=== PATIENT | female | born 1945 | race Caucasian/White ===

== ENCOUNTER 2016-11-28 05:17 | Inpatient (IN) | payer OTHER ==
[2016-11-08 09:52] VITALS: BMI 29.0
--- NOTE | 2016-11-08 10:38 | PAT Medication Instructions ---
Service Date Nov 08, 2016. Current Home Medication List Atorvastatin (Lipitor), 40 MG PO QPM Cholecalciferol (Vitamin D3), 1 TAB PO QPM Lisinopril (Lisinopril), 1 TAB PO QPM Losartan Potassium (Cozaar), 50 MG PO QPM Nortriptyline (Pamelor), 50 MG PO HS Tramadol (Ultram), 50 MG PO Q6 PRN for Pain Medication Instructions For Your Scheduled Surgery - Hold the following medications evening prior to surgery: Losartan Potassium (Cozaar), 50 MG PO QPM Lisinopril (Lisinopril), 1 TAB PO QPM - Take the following medications the morning of surgery with a sip of water: Tramadol (Ultram), 50 MG PO Q6 PRN for Pain (can take up to four hours prior to surgery if needed) - Take the following medications as scheduled the night before surgery: Tramadol (Ultram), 50 MG PO Q6 PRN for Pain Nortriptyline (Pamelor), 50 MG PO HS Cholecalciferol (Vitamin D3), 1 TAB PO QPM Atorvastatin (Lipitor), 40 MG PO QPM If you have any questions please call us at [phone] or [phone] ( Alyssa) or [phone]
[2016-11-08 11:11] LABS: PROTHROMBIN TIME (PATIENT) 10.3 SECONDS (9.0-12.0)
[2016-11-08 12:11] LABS: ESTIMATED AVERAGE GLUCOSE 137 mg/dl; HA1C FLAG Normal (Normal)
--- NOTE | 2016-11-27 08:51 | HISTORY & PHYSICAL EXAMINATION ---
DATE OF ADMISSION: 11/28/2016 CHIEF COMPLAINT: Right hip pain. HISTORY OF PRESENT ILLNESS: The patient is a 71-year-old female with known osteoarthritis about her bilateral hips. She takes tramadol intermittently daily for pain. She has pain and disability with activities of daily living. She has pain with prolonged weightbearing and standing activities. She has difficulty with kneeling, bending or squatting activities. She now desires to proceed with right total hip arthroplasty. PAST MEDICAL HISTORY: Coronary artery disease, hypertension, type 2 diabetes, although she states she does not medicate regularly. PAST SURGICAL HISTORY: None. MEDICATIONS: Atorvastatin calcium 40 mg daily, losartan potassium 50 mg daily, natural vitamin D 5000 units daily, nortriptyline hydrochloride 50 mg at bedtime, ranitidine hydrochloride 150 mg daily, tramadol hydrochloride 50 mg daily p.r.n. ALLERGIES: No known drug allergies. SOCIAL HISTORY AND REVIEW OF SYSTEMS: Noncontributory. PHYSICAL EXAMINATION: GENERAL: Well-nourished, well-developed elderly female who appears her stated age. HEENT: Normocephalic, atraumatic, extraocular movements intact, oropharynx pink and moist. NECK: Supple without adenopathy. LUNGS: Clear to auscultation bilaterally. HEART: Regular rate and rhythm. ABDOMEN: Soft, nontender, nondistended. EXTREMITIES: Upper extremities are within normal limits. The right hip demonstrates decreased range of motion. There is limitation of active and passive internal/external rotation with pain at end pressure. X-RAYS: X-rays were reviewed. She has moderate to severe osteoarthritis about the right hip with loss of the joint space, particularly on the inferior joint. She has osteophytes about the femoral head and acetabulum. ASSESSMENT: Right hip degenerative joint disease. PLAN: Risks versus benefits were discussed, consent was obtained. The patient's primary care physician is Dr. Munroe. We will proceed with right total hip arthroplasty upon preoperative workup and medical clearance. VIPUL
[2016-11-28] VITALS (11 sets, daily range): BP systolic 138–182; BP diastolic 58–88; PULSE 62–85; TEMP 36.3–36.8; O2SAT 94–98; Ht 162.6 cm; Wt 77.1 kg
[~2016-11-28] VITALS: Ht 162.6 cm; Wt 77.1 kg
[~2016-11-28 05:17] MED LIST: ATOR-24 PO; LOSA50TA54 PO; LSN5 PO; NORT50CA PO; TRAM-10 PO; VTMD1000 PO
[2016-11-28] MEDS ORDERED: METOCLOPRAMIDE HCL 10 MG TAB PO SCH (06:00)
[2016-11-28] MEDS ORDERED: FAMOTIDINE 20 MG TAB PO SCH (06:00)
[2016-11-28] MEDS ORDERED: GABAPENTIN 300 MG CAP PO SCH (06:00)
[2016-11-28] MEDS ORDERED: ACETAMINOPHEN 500 MG TAB PO SCH (06:00)
[2016-11-28] MEDS ORDERED: DEXAMETHASONE 4 MG TAB PO SCH (06:00)
[2016-11-28] MEDS ORDERED: LACTATED RINGER'S 500 ML IV SCH (06:00)
[2016-11-28] MEDS ORDERED: CeleBREX 200 MG CAP PO SCH (06:00)
[2016-11-28] MEDS ORDERED: CEFAZOLIN 1000MG/55 ML D5W 55 ML IV SCH (06:00)
[2016-11-28] MEDS ORDERED: LACTATED RINGER'S 1000ML IV SCH (06:00)
[2016-11-28] MEDS ORDERED: ROPIVACAINE 5MG/ML 30 ML 150 MG, BUPIVACAINE/EPINEPHR 0.5% MPF 30 ML, KETOROLAC TROMETH... INFIL SCH ×7 (06:00)
[2016-11-28] MEDS: TRANEXAMIC ACID INJ 1,000 MG in SODIUM CHLORIDE 0.9% 100ML 100 ML IV SCH ×2 (06:17→10:26)
[2016-11-28] MEDS ORDERED: BUPIVACAINE 0.5 % 5 MG/1 ML PF 10ML VIAL ONE (06:20)
--- NOTE | 2016-11-28 06:36 | History & Physical Bridge Note ---
H&P Re-Evaluation Bridge Note: I have examined the patient, reviewed the History & Physical and in the interval since the performance of the History & Physical I have noted the following changes of clinical significance: No changes noted
[2016-11-28] MEDS ORDERED: MIDAZOLAM HCL 1 MG/ML 2ML VIAL ONE (06:39)
[2016-11-28] MEDS ORDERED: FENTANYL CITRATE INJ 50 MCG/1 ML 2 ML VIAL ONE (06:39)
[2016-11-28] MEDS ORDERED: LACTATED RINGER'S 1000ML 1,000 ML IV PRN (06:44)
[2016-11-28] MEDS ORDERED: ONDANSETRON INJ 2 MG/ML 2 ML VIAL IV PRN ×2 (06:45→08:30)
[2016-11-28] MEDS ORDERED: FENTANYL CITRATE INJ 50 MCG/1 ML 2 ML VIAL IV PRN (06:45)
[2016-11-28] MEDS ORDERED: CEFAZOLIN SOD 1 GM VIAL ONE (07:01)
[2016-11-28] MEDS ORDERED: ORTHO JOINT ANESTHETIC ONE (07:11)
[2016-11-28] MEDS ORDERED: PHENYLEPHRINE 100MCG/ML 5ML SYR ONE (07:38)
[2016-11-28] MEDS ORDERED: PROPOFOL IV EMULSION 10 MG/ML 20 ML VIAL IV ONE (07:39)
[2016-11-28] MEDS ORDERED: BACITRACIN 50000 UNIT VIAL IR ONE (07:40)
[2016-11-28] MEDS ORDERED: POVIDONE-IODINE OP SOLN 30 ML BTL TOP ONE (07:40)
--- NOTE | 2016-11-28 07:48 | [facility] Post Operative Brief Note ---
Immediate Operative Summary Operative Date Nov 28, 2016. Pre-Operative Diagnosis Right hip degenerative joint disease Post-Operative Diagnosis Right hip degenerative joint disease Procedure(s) Performed Right total hip arthroplasty; uncemented Surgeon Dr. Rodriguez Major Assembly Lineman Surgeon(s) Mil Aquino PA-C Estimated Blood Loss 100 ml Findings severe OA Specimens A. Right femoral head Complication(s) None
--- NOTE | 2016-11-28 08:04 | OPERATIVE REPORT ---
DATE OF OPERATION: 11/28/2016 PREOPERATIVE DIAGNOSIS: Osteoarthritis right hip. POSTOPERATIVE DIAGNOSIS: Osteoarthritis right hip. PROCEDURE: Accolade right total hip arthroplasty. SURGEON: Dr. Rodriguez. GORING CUTTER: Mil Aquino PA-C. ANESTHESIA: Spinal. COMPLICATIONS: None. OPERATION AND FINDINGS: PROCEDURE: Following induction of adequate spinal anesthesia, the patient was placed in left lateral decubitus position and right Pablo-Langenbeck incision was made. Subcutaneous tissue was sharply dissected. Electrocautery used for hemostasis. The fascia was incised throughout the length of the wound and a gibbs scissor placed beneath the short external rotators. The pyriformis was tagged with #1 Vicryl. The short external rotators were divided from the posterior aspect of the femur using electrocautery. These were swept posteriorly. A T-capsulotomy incision was made and the hip was dislocated using a combination of flexion, adduction, and internal rotation. Exposure of the femoral neck with old-style Hohmann and a blunt Hohmann was carried out and a femoral rasp was utilized as a guide for making the appropriate level femoral neck cut. This bone fragment was removed and reserved on the back table. Next, attention was turned to the acetabulum where bone hook was used to retract the femur while the offset retractors were placed anterior and posteriorly. A double-angled Hohmann was placed in superior and anterior position exposing the acetabulum nicely. Acetabular labrum as well as posterior capsule elements were removed using a long knife and a long pickup. Fovea centralis was cleared of all soft tissue. Sequential reamings were carried up to a 52 and decision was made to proceed with impaction of a 52 trabecular metal cup. This was impacted and held using a single 35 mm bone screw. The acetabular liner was placed with 15 of elevated posterior wall in the superior and posterior position. Next, attention was turned to the femoral portion of the case where a Bovie and pickup was used to further clear short external rotators from their insertion on the femur. Box osteotome was used to gain access to the femoral canal and the T-handled rasp and a rattail rasp were used to further open and lateral the canal. Sequentially raspings were carried up to a #4 which gave good fit and fill of the proximal femur. A trial reduction was carried out and #4 offset femoral neck component was chosen as the size to be used. A -5 x 36 mm ceramic femoral head was impacted into position, +0 head was utilized. The trial reduction was stable in all degrees of rotation with no [id number] impingement. The hip was dislocated. The trial components were removed and the final femoral stem, neck, and femoral head combination were assembled on the back table and impacted into position. Hip was relocated. Range of motion checked once again successful and the wound was irrigated. The pyriformis repaired to the greater trochanter using #1 Vicryl [id number] suture. A Hemovac drain was placed and the fascia was closed using #1 Vicryl, subcutaneous tissue was closed using 0 Dexon, and skin was closed with scott. Sterile dressing of Adaptic, 4 x 4's, ABDs, and foam tape was applied. The patient tolerated the procedure well. Recovery room stable. Due to the complex nature of the procedure, the entire surgery was performed with the operational assistance of Mil Aquino PA-C. The surgical assistant, under direct supervision, was involved in the actual performance of all aspects of the surgical procedure including hemostasis, tissue retraction and incision, instrument management, patient positioning, and wound closure. I attest to the content of the Intraoperative Record and any orders documented therein. Any exceptio ns are noted below.
[2016-11-28] MEDS ORDERED: MoRPHine SULFATE 2 MG/ML CARP IV PRN ×2 (08:30→10:30)
[2016-11-28] MEDS ORDERED: ZOLPIDEM TARTRATE 5 MG TAB PO PRN (08:30)
[2016-11-28] MEDS ORDERED: ALUMINUM/MAGNESIUM/SIMETH (MAALOX MAX) 30 ML UDC PO PRN (08:30)
[2016-11-28] MEDS ORDERED: DiphenhydrAMINE HCL 50 MG/ML VIAL IV PRN (08:30)
[2016-11-28] MEDS ORDERED: MAGNESIUM HYDROXIDE SUSP 30 ML UDC PO PRN (08:30)
[2016-11-28] MEDS ORDERED: BISACODYL 10 MG SUPP PR PRN (08:30)
--- NOTE | 2016-11-28 09:03 | DIAGNOSTIC IMAGING REPORT ---
RIGHT PELVIS/UNILATERAL HIP 1 VIEW CLINICAL HISTORY: Right hip arthroplasty. COMPARISON: Right hip radiographs January 15, 2016. FINDINGS: Alignment of the total right hip arthroplasty is anatomic. There is no fracture or unexpected radiopaque foreign body. Drains and skin scott are present. IMPRESSION: Expected findings following total right hip arthroplasty. Electronically signed by: Jaylan Layton M.D. 11/28/2016 9:01 AM Dictated Date/Time: 11/28/2016 9:01 AM
--- NOTE | 2016-11-28 09:11 | Anesthesiology Progress Note ---
Anesthesia Post Op Note Date & Time Nov 28, 2016 at 09:11 Vital Signs Pain Intensity: 0 Vital Signs Past 12 Hours Date Time Temp Pulse Resp B/P Pulse Ox O2 Delivery O2 Flow Rate FiO2 11/28/16 09:00 65 17 11/28/16 09:00 66 17 99 11/28/16 08:59 139/70 11/28/16 08:55 66 25 11/28/16 08:55 66 25 99 11/28/16 08:53 141/64 11/28/16 08:50 64 15 11/28/16 08:50 64 15 99 11/28/16 08:49 66 17 11/28/16 08:49 65 17 113/61 100 11/28/16 08:44 68 17 11/28/16 08:44 67 17 140/61 100 11/28/16 08:39 69 16 11/28/16 08:39 69 16 100 11/28/16 08:38 148/66 11/28/16 08:34 71 20 11/28/16 08:34 72 20 142/51 100 11/28/16 08:29 36.7 90 16 141/50 100 Mask 10 11/28/16 08:29 74 19 11/28/16 08:29 74 19 98/72 100 11/28/16 06:03 94 Room Air 11/28/16 05:51 36.8 77 20 182/82 Notes Mental Status: alert / awake / arousable, participated in evaluation Pt Amnestic to Procedure: Yes Nausea / Vomiting: adequately controlled Pain: adequately controlled Airway Patency, RR, SpO2: stable & adequate BP & HR: stable & adequate Hydration State: stable & adequate Neuraxial Anesthesia: was administered, sensory block is resolving Anesthetic Complications: no major complications apparent Pt doing well.
[2016-11-28] MEDS: SODIUM CHLORIDE 0.9% 1000ML 1,000 ML IV SCH ×2 (10:26→20:22)
[2016-11-28] MEDS ORDERED: MoRPHine SULFATE 10 MG/ML CARP/VIAL IV PRN (10:30)
[2016-11-28] MEDS ORDERED: GLUCAGON FOR INJ 1 MG VIAL SQ PRN (10:30)
[2016-11-28] MEDS ORDERED: GLUCOSE 10 TABS/TUBE PO PRN (10:30)
[2016-11-28] MEDS ORDERED: MoRPHine SULFATE 4 MG/ML 1 ML CARP\\VIAL IV PRN (10:30)
[2016-11-28] MEDS ORDERED: GLUCOSE 40% GEL 15 GM TUBE PO PRN (10:30)
[2016-11-28] MEDS ORDERED: DEXTROSE 50% 50 ML SYR IV PRN (10:30)
[2016-11-28] MEDS: PANTOprazole SOD 40 MG TAB PO SCH (11:08)
[2016-11-28] MEDS: MULTIVITAMIN TAB PO SCH (11:08)
[2016-11-28] MEDS: FERROUS GLUCONATE 324 MG TAB PO SCH ×2 (12:14→18:02)
[2016-11-28] MEDS: KETOROLAC TROMETHAMINE 15 MG/ML VIAL IV. SCH ×3 (12:14→23:48)
[2016-11-28] MEDS: INSULIN ASPART 100 UNITS/ML 3 ML PEN SC SCH ×3 (13:11→21:09)
[2016-11-28] MEDS: CEFAZOLIN IV 1,000 MG in DEXTROSE 5% 50ML 50 ML IV SCH ×2 (14:09→22:34)
[2016-11-28] MEDS: ACETAMINOPHEN 500 MG TAB PO SCH ×2 (14:10→22:34)
[2016-11-28] MEDS: OXYCODONE HCL IR 5 MG TAB (IMMEDIATE RELEASE) PO PRN (14:14)
[2016-11-28] MEDS: NORTRIPTYLINE HCL 25 MG CAP PO SCH (21:02)
[2016-11-28] MEDS: SENNA 8.6 MG TAB PO SCH (21:02)
[2016-11-28] MEDS: ASPIRIN 81 MG ECTAB PO SCH (21:03)
[2016-11-28] MEDS: ATORVASTATIN 40 MG TAB PO SCH (21:03)
[2016-11-28] MEDS: LISINOPRIL 5 MG TAB PO SCH (21:03)
[2016-11-28] MEDS: LOSARTAN POTASSIUM 50 MG TAB PO SCH (21:03)
[2016-11-28] MEDS: CHOLECALCIFEROL 1000 INTER.UNIT TAB PO SCH (21:03)
[2016-11-28] MEDS: DOCUSATE SODIUM 100 MG CAP PO SCH (21:03)
[2016-11-29 00:30] VITALS: BP 128/74; PULSE 75; TEMP 36.2; O2SAT 93
[2016-11-29 03:35] VITALS: BP 119/72; PULSE 81; TEMP 36.7; O2SAT 95
[2016-11-29] MEDS: SODIUM CHLORIDE 0.9% 1000ML 1,000 ML IV SCH (05:44)
[2016-11-29] MEDS: ACETAMINOPHEN 500 MG TAB PO SCH ×3 (05:45→21:20)
[2016-11-29] MEDS: KETOROLAC TROMETHAMINE 15 MG/ML VIAL IV. SCH (05:46)
[2016-11-29 06:55] LABS: BASO % 0.1 %; BASO ABS # 0.01 K/uL (0-0.2); COMPLETE YES; HEMATOCRIT 32.2 % (37-47); IG% 0.2 %; LYMPH % 9.9 %; LYMPH ABS # 1.18 K/uL (1.2-3.4); MEAN CELL VOLUME 85.4 fL (80-100); MEAN CORPUSCULAR HEMOGLOBIN 27.9 pg (25-34); MEAN CORPUSCULAR HGB CONC 32.6 g/dl (32-36); MEAN PLATELET VOLUME 9.8 fL (7.4-10.4); MONO % 11.6 %; NEUT % 78.2 %; PLATELET COUNT 250 K/uL (130-400); RED BLOOD COUNT 3.77 M/uL (4.2-5.4); WHITE BLOOD COUNT 11.94 K/uL (4.8-10.8)
[2016-11-29 07:21] LABS: BUN/CREATININE RATIO 21.8 (10-20); CREATININE 0.85 mg/dl (0.60-1.20); POTASSIUM 3.8 mmol/L (3.5-5.1)
[2016-11-29 07:35] VITALS: BP 146/72; PULSE 73; TEMP 36.8; O2SAT 94
--- NOTE | 2016-11-29 07:42 | Orthopedic Progress Note ---
Orthopedic Progress Note Date of Service Nov 29, 2016. Subjective Post OP Day: 1 Reports: feeling well Objective N/V intact, dressing C/D/I (Prevena and hemovac in place), toes mobile Date Time Temp Pulse Resp B/P Pulse Ox O2 Delivery O2 Flow Rate FiO2 11/29/16 07:35 36.8 73 16 146/72 94 Room Air 11/29/16 03:35 36.7 81 18 119/72 95 Room Air 11/29/16 00:30 36.2 75 18 128/74 93 Room Air 11/28/16 23:45 Room Air 11/28/16 19:31 36.7 85 16 150/72 94 Room Air 11/28/16 19:15 Room Air 11/28/16 16:42 155/81 11/28/16 16:00 Room Air 2.0 11/28/16 15:29 162/80 11/28/16 15:27 36.3 78 16 178/75 94 Room Air 11/28/16 12:35 74 16 144/75 98 Nasal Cannula 2.0 11/28/16 11:32 81 16 138/76 97 Nasal Cannula 2.0 11/28/16 10:29 36.8 75 18 166/88 95 Room Air 11/28/16 10:05 62 16 179/84 96 Nasal Cannula 2.0 11/28/16 10:04 Nasal Cannula 2.0 11/28/16 10:00 94 Nasal Cannula 2.0 11/28/16 09:35 36.5 65 20 157/58 94 Nasal Cannula 2.0 11/28/16 09:24 157/73 11/28/16 09:21 58 17 100 11/28/16 09:21 58 17 11/28/16 09:19 157/64 11/28/16 09:16 65 15 99 11/28/16 09:16 64 15 11/28/16 09:14 150/60 11/28/16 09:12 37.1 65 16 150/60 97 Nasal Cannula 2 11/28/16 09:11 60 21 100 11/28/16 09:11 60 21 11/28/16 09:09 146/87 11/28/16 09:06 60 16 11/28/16 09:06 60 16 99 11/28/16 09:04 130/74 11/28/16 09:01 64 21 11/28/16 09:01 65 21 100 11/28/16 09:00 65 17 11/28/16 09:00 66 17 99 11/28/16 08:59 139/70 11/28/16 08:55 66 25 11/28/16 08:55 66 25 99 11/28/16 08:53 141/64 11/28/16 08:50 64 15 11/28/16 08:50 64 15 99 11/28/16 08:49 66 17 11/28/16 08:49 65 17 113/61 100 11/28/16 08:44 68 17 11/28/16 08:44 67 17 140/61 100 11/28/16 08:39 69 16 11/28/16 08:39 69 16 100 11/28/16 08:38 148/66 11/28/16 08:34 71 20 11/28/16 08:34 72 20 142/51 100 11/28/16 08:29 36.7 90 16 141/50 100 Mask 10 11/28/16 08:29 74 19 11/28/16 08:29 74 19 98/72 100 Laboratory Results 24 Hours: Test 11/29/16 06:40 White Blood Count 11.94 K/uL Red Blood Count 3.77 M/uL Hemoglobin 10.5 g/dL Hematocrit 32.2 % Mean Corpuscular Volume 85.4 fL Mean Corpuscular Hemoglobin 27.9 pg Mean Corpuscular Hemoglobin Concent 32.6 g/dl Platelet Count 250 K/uL Mean Platelet Volume 9.8 fL Neutrophils (%) (Auto) 78.2 % Lymphocytes (%) (Auto) 9.9 % Monocytes (%) (Auto) 11.6 % Eosinophils (%) (Auto) 0.0 % Basophils (%) (Auto) 0.1 % Neutrophils # (Auto) 9.35 K/uL Lymphocytes # (Auto) 1.18 K/uL Monocytes # (Auto) 1.38 K/uL Eosinophils # (Auto) 0.00 K/uL Basophils # (Auto) 0.01 K/uL Assessment & Plan Assessment: 71 yo female stable POD #1 s/p right OCHOA Plan: 1. Med management 2. DVT prophylaxis- ASA, TEDs, SCDs 3. PT/OT 4. D/C planning- home w/ HH
--- NOTE | 2016-11-29 07:45 | Discharge Instructions ---
Discharge Instructions Admission Reason for Admission: Right Hip Osteoarthritis Discharge Discharge Diagnosis / Problem: Right hip arthritis Discharge Goals Goal(s): Decrease discomfort, Improve function Activity Recommendations Activity Limitations: as noted below . Instructions / Follow-Up Instructions / Follow-Up ACTIVITY RECOMMENDATIONS: SELF CARE INSTRUCTIONS AFTER TOTAL HIP REPLACEMENT Until the incision and soft tissues around your hip have healed, there is a possibility that the hip prosthesis could dislocate. A. Observe the following precautions to prevent dislocation: 1. Don't bend your hip greater than 90 degrees. 2. Avoid crossing your legs or ankles while standing or lying. 3. Sit with your feet placed 6 inches apart. 4. When sitting, keep your knees below your hips. Sit on a firm surface, avoid deep, soft chairs and couches. Use an elevated toilet seat in the bathroom. 5. Don't bend over at the waist. Use a long handled shoehorn and a sock aid to help you put on your shoes and socks. A optical manufacturing technician can help you pick up attendant objects that are too high or too low to reach. 6. Keep car riding to a minimum for at least one month after surgery. B. Your balance may be shaky for a while. Use crutches or a walker until directed by your doctor. C. Use hand rails when walking on stairs. D. Wear low heeled shoes with non-slip soles. E. Be sure that your floors are free of things that could trip you - throw rugs , electrical cords, small objects. Avoid wet and waxed floors, especially with crutches and canes. F. Try to walk several times a day with rest periods between. G. Continue with all the exercises taught to you in the hospital. Again, make walking a part of your daily routine. SPECIAL CARE INSTRUCTIONS: VERY IMPORTANT TO READ AND REVIEW A. You may still be at risk for phlebitis and blood clots. 1. Wear surgical stockings (NILSA hose) for 2 weeks after surgery to improve circulation and reduce swelling. 2. Take Aspirin 81mg twice daily for 4 weeks or as directed by your doctor. This is your blood thinner. 3. High risk patients may be prescribed a stronger blood thinner if necessary. 4. If you are on Coumadin normally, your family doctor/visual c developer should monitor your blood work. Expect a phone call the day of or the day after bloodwork is drawn to adjust your dosage. B. You must take antibiotics before having dental work, bladder, bowel and other surgery. Your doctor will provide you with a permanent card to carry describing precautions. C. Call [facility] if you have a fever, redness or swelling around the incision, cloudy drainage from incision, or sudden increase in pain in your hip, not relieved by your regular pain medication. D. Please call the office at if you have any concerns or questions about your operation or recovery. * YOU MAY SHOWER, NO TUB BATHS UNTIL CLEARED BY YOUR DOCTOR. * WEAR NILSA HOSE 20 HOURS PER DAY FOR 2 WEEKS. * YOU SHOULD USE A WALKER OR CRUTCHES FOR 2-4 WEEKS. THIS WILL HELP PREVENT STRAIN ON YOUR HIP MUSCLE AND ALLOW IT TO HEAL PROPERLY. YOU MAY WEAN TO A CANE TOLERATED. * MOST PATIENTS WILL HAVE HOME NURSING FOR THERAPY. IF YOU DECIDE TO DO OUTPATIENT PHYSICAL THERAPY, PLEASE SCHEDULE THIS 3 TIMES PER WEEK. Prevena- This is a large suction dressing covering your incision. This will help pull any excess drainage from the wound and allow your incision to heal properly. You may shower with this if you can keep the unit outside of the shower. If any bleeding or leakage is noted please call your doctor's office. This will remain on your incision for 7 days and then should be removed. This can be done yourself or by the home nursing staff if applicable. The entire unit is disposable once removed. Once removed, keep incision clean and dry. If redness or drainage is noted, please call your surgeon. FOLLOW UP VISIT: If appointment is not already scheduled: Please call [facility] to make a follow-up appointment for 2 weeks after your surgery at . Current Hospital Diet Patient's current hospital diet: Diabetes Type 2 Diet Discharge Diet Recommended Diet: Diabetes Type 2 Diet Procedures Procedures Performed: Right total hip arthroplasty; uncemented Pending Studies Studies pending at discharge: no Laboratory Results Hemoglobin A1c Test 11/08/16 10:41 Range/Units Estimated Average Glucose 137 mg/dl Hemoglobin A1c 6.4 H 4.5-5.6 % Lipid Panel Test 09/17/16 11:10 Range/Units Triglycerides Level 130 0-150 mg/dl Cholesterol Level 124 0-200 mg/dl HDL Cholesterol 47 mg/dl Cholesterol/HDL Ratio 2.6 LDL Cholesterol, Calculated 51 mg/dl Medical Emergencies . Who to Call and When: Medical Emergencies: If at any time you feel your situation is an emergency, please call 911 immediately. . Non-Emergent Contact Non-Emergency issues call your: Surgeon Call Non-Emergent contact if: temperature is above 101.5, your pain is not controlled, wound has increased drainage, wound has increased redness . "Provider Documentation" section prepared by Cheikh Jackson PA-C. VTE Core Measure Inpt VTE Proph given/why not?: Other Anticoagulation (ASA 81mg bid), T.E.D. Stockings, SCD's
--- NOTE | 2016-11-29 08:22 | Anesthesiology Progress Note ---
Anesthesia Post Op Note Date & Time Nov 29, 2016 at 08:21 Vital Signs Pain Intensity: 0.0 Vital Signs Past 12 Hours Date Time Temp Pulse Resp B/P Pulse Ox O2 Delivery O2 Flow Rate FiO2 11/29/16 07:35 36.8 73 16 146/72 94 Room Air 11/29/16 03:35 36.7 81 18 119/72 95 Room Air 11/29/16 00:30 36.2 75 18 128/74 93 Room Air 11/28/16 23:45 Room Air Notes Mental Status: alert / awake / arousable, participated in evaluation Pt Amnestic to Procedure: Yes Nausea / Vomiting: adequately controlled Pain: adequately controlled Airway Patency, RR, SpO2: stable & adequate BP & HR: stable & adequate Hydration State: stable & adequate Neuraxial Anesthesia: was administered, sensory block resolved Anesthetic Complications: no major complications apparent
[2016-11-29] MEDS: DOCUSATE SODIUM 100 MG CAP PO SCH ×2 (09:17→21:16)
[2016-11-29] MEDS: INSULIN ASPART 100 UNITS/ML 3 ML PEN SC SCH ×4 (09:17→22:06)
[2016-11-29] MEDS: PANTOprazole SOD 40 MG TAB PO SCH (09:17)
[2016-11-29] MEDS: ASPIRIN 81 MG ECTAB PO SCH ×2 (09:17→21:16)
[2016-11-29] MEDS: MULTIVITAMIN TAB PO SCH (09:17)
[2016-11-29] MEDS: FERROUS GLUCONATE 324 MG TAB PO SCH ×3 (09:17→17:59)
[2016-11-29] MEDS: OXYCODONE HCL IR 5 MG TAB (IMMEDIATE RELEASE) PO PRN ×2 (09:20→14:13)
[2016-11-29 11:38] VITALS: BP 144/77; PULSE 76; TEMP 36.5; O2SAT 94
[2016-11-29 14:53] VITALS: BP 128/70; PULSE 69; TEMP 36.4; O2SAT 95
[2016-11-29] MEDS: NORTRIPTYLINE HCL 25 MG CAP PO SCH (21:16)
[2016-11-29] MEDS: SENNA 8.6 MG TAB PO SCH (21:17)
[2016-11-29] MEDS: LOSARTAN POTASSIUM 50 MG TAB PO SCH (21:17)
[2016-11-29] MEDS: LISINOPRIL 5 MG TAB PO SCH (21:17)
[2016-11-29] MEDS: ATORVASTATIN 40 MG TAB PO SCH (21:17)
[2016-11-29] MEDS: CHOLECALCIFEROL 1000 INTER.UNIT TAB PO SCH (21:18)
[2016-11-29 23:33] VITALS: BP 136/65; PULSE 73; TEMP 37; O2SAT 95
[2016-11-30] MEDS: ACETAMINOPHEN 500 MG TAB PO SCH (05:33)
[2016-11-30 06:57] VITALS: BP 132/68; PULSE 75; TEMP 36.8; O2SAT 96
[2016-11-30] MEDS: INSULIN ASPART 100 UNITS/ML 3 ML PEN SC SCH (07:29)
[2016-11-30 08:43] VITALS: BP 129/72; PULSE 95; O2SAT 95
--- NOTE | 2016-11-30 08:44 | Orthopedic Progress Note ---
Orthopedic Progress Note Date of Service Nov 30, 2016. Subjective Post OP Day: 2 Reports: feeling well, pain controlled w PO medications, Denies: SOB, calf pain , chest pain, complaints, light headedness, nausea / vomiting Objective calves soft nontender, N/V intact, hip located, capillary refill less than 2 sec., dressing C/D/I (Prevena dressing in place and functioning.), A&O x3, toes mobile Date Time Temp Pulse Resp B/P Pulse Ox O2 Delivery O2 Flow Rate FiO2 11/30/16 06:57 36.8 75 18 132/68 96 Room Air 11/29/16 23:33 37.0 73 16 136/65 95 Room Air 11/29/16 23:24 Room Air 11/29/16 15:15 Room Air 11/29/16 14:53 36.4 69 16 128/70 95 Room Air 11/29/16 11:38 36.5 76 16 144/77 94 Room Air 11/29/16 09:11 Room Air Assessment & Plan Assessment: 71 yo female stable POD #2 s/p right OCHOA Plan: 1. Med management 2. DVT prophylaxis- ASA, TEDs, SCDs 3. PT/OT 4. D/C planning- home w/ HH Inhouse Planning Pain Management: PO Tylenol, Oxy IR DVT Prophylaxis: TEDs, ASA Discharge Planning Discharge Planning: home with home health Pain Management: PO Tylenol, Oxy IR DVT Prophylaxis: TEDs, ASA (81 mg BID x 30 days)
[2016-11-30] MEDS ORDERED: RXC5 PO (08:45)
[2016-11-30] MEDS ORDERED: ASPEC81 PO (08:45)
[2016-11-30] MEDS ORDERED: ONDA8TAB6 PO (08:45)
[2016-11-30] MEDS ORDERED: ACET-1138 PO (08:45)
[2016-11-30] MEDS: OXYCODONE HCL IR 5 MG TAB (IMMEDIATE RELEASE) PO PRN (09:00)
[2016-11-30] MEDS: MULTIVITAMIN TAB PO SCH (09:00)
[2016-11-30] MEDS: DOCUSATE SODIUM 100 MG CAP PO SCH (09:01)
[2016-11-30] MEDS: FERROUS GLUCONATE 324 MG TAB PO SCH (09:01)
[2016-11-30] MEDS: PANTOprazole SOD 40 MG TAB PO SCH (09:01)
[2016-11-30] MEDS: ASPIRIN 81 MG ECTAB PO SCH (09:01)
[2016-11-30 09:13] VITALS: BP 129/72; PULSE 95; TEMP 36.8; O2SAT 95
--- NOTE | 2016-12-02 12:32 | DISCHARGE SUMMARY ---
DISCHARGE DIAGNOSIS: Degenerative joint disease, right hip. SECONDARY DIAGNOSES: Coronary artery disease; hypertension; type 2 diabetes mellitus, diet controlled. CONSULTS: None. COMPLICATIONS: None. PROCEDURES: Right total hip arthroplasty performed by Dr. Rodriguez on 11/28/2016. BRIEF HISTORY OF PRESENT ILLNESS: As dictated in history and physical. HOSPITAL SUMMARY: The patient was admitted on the above date and had the above-noted surgery performed which she tolerated well. On her first postoperative day, she was feeling well and had no complaints. Neurovascularly was intact. Dressings were clean, dry and intact. Toes were mobile. Hip was located. Vital signs were stable and she was afebrile. Hemoglobin was 10.5 and she was started on physical therapy protocol and continued on DVT prophylaxis and pain management and hip precautions. By her second postoperative day, she was feeling well. Her pain was controlled. Calves were soft and nontender, neurovascularly intact. Dressings were clean, dry and intact. Toes were mobile. Vital signs were stable. She was afebrile progressing with her physical therapy and it was felt she could be discharged to home with home health services. For further review, please see chart. LABORATORY AND X-RAY DATA: As per chart. DISCHARGE INSTRUCTIONS: The patient was discharged to home in satisfactory condition on 11/30/2016. DIET: Diabetic. ACTIVITY: Weightbearing as tolerated on the right lower extremity. Follow OCHOA instructions and special care instructions as noted in the discharge instructions. Followup visit with Dr. Rodriguez in 2 weeks. The patient to call for appointment if one has not been made for you. DISCHARGE MEDICATIONS: Acetaminophen 1000 mg p.o. q. 8 hours, aspirin 81 mg p.o. b.i.d., Zofran 8 mg p.o. q. 8 hours p.r.n. nausea, oxycodone 5-10 mg p.o. q. 4 hours p.r.n., resume taking atorvastatin 40 mg p.o. q.p.m., vitamin D3 one tab p.o. q.p.m., lisinopril 5 mg 1 tab p.o. q.p.m., losartan potassium 50 mg p.o. q.p.m. and nortriptyline 50 mg p.o. at bedtime. Stop taking tramadol.
== END 2016-11-30 10:09 | disposition home health service (06) | DRG 470 ==
LOC: ENRESERVDT → ENRESERVTM → C.ACU 05:17 → C.MSW 06:30
PROC: 0SR90JA Replacement of Right Hip Joint with Synthetic Substitute, Uncemented, Open Approach (ICD-10-PCS; principal; 2016-11-28 07:00)
DX: M16.11 Unilateral primary osteoarthritis, right hip (principal); I25.10 Atherosclerotic heart disease of native coronary artery without angina pectoris; I10 Essential (primary) hypertension; E11.9 Type 2 diabetes mellitus without complications; Z79.899 Other long term (current) drug therapy

== ENCOUNTER → 2017-01-13 | Outpatient (CLI) | payer OTHER ==
[~2017-01-13] MED LIST changes: +ACET-1138 PO; +AMOX875T PO; +ASPEC81 PO; +ASPI81TA28 PO; +CEPH500C PO; +CHOLTAB11 PO; +HYDR25TA4 PO; +IBUP-103 PO; +LOSA100T65 PO; +LPT40 PO; +MELO7.5T5 PO; +ONDA8TAB6 PO; +OXYC1CAP5 PO; +PRLSR20 PO; +RANI150T2 PO; +RXC5 PO; -TRAM-10 PO
[2017-01-16 12:51] LABS: ALBUMIN 3.8 G/DL (3.8-4.8); ALBUMIN % 45.33 %; ALPHA-2-GLOBULIN % 17.52 %; BETA GLOBULIN % 19.03 %; CREATININE UR 115 MG/DL (20-320); GAMMA GLOBULIN 1.3 G/DL (0.8-1.7); TOTAL PROTEIN 7.7 G/DL (6.2-8.3)
--- NOTE | 2017-01-21 11:04 | CODING QUERY MEDICAL NECESSITY ---
SUPPORTING DIAGNOSIS NEEDED A supporting diagnosis is required for the test/procedure performed on this patient in order for us to be reimbursed by the patient's insurance. Please provide a supporting diagnosis for the following test/procedure listed below next to the test name along with your signature. *If there is no additional diagnosis for this patient that would support the following test/procedure please document that below next to the test/procedure. Test(s)/Procedure(s) that require a supporting diagnosis: * VITAMIN D 25-HYDROXY DIAGNOSIS: * DOS: 01/13/17 Provider Signature: Date: Thank you Diane Silva Health Information Management Once completed, please kindly fax back to [phone] For questions please call [phone]
== END | disposition home or self-care (01) ==
LOC: C.LABBFT 16:43
PROVIDERS: ATTEND Internal Medicine
DX: R77.1 Abnormality of globulin (principal); M85.80 Other specified disorders of bone density and structure, unspecified site

== ENCOUNTER → 2017-02-14 | Outpatient (CLI) | payer OTHER ==
[2017-02-14 12:41] LABS: BLOOD UREA NITROGEN 12 mg/dl (7-18); BUN/CREATININE RATIO 11.9 (10-20)
== END | disposition home or self-care (01) ==
LOC: C.LABBFT 10:06
PROVIDERS: ATTEND Internal Medicine
DX: R39.9 Unspecified symptoms and signs involving the genitourinary system (principal); E27.9 Disorder of adrenal gland, unspecified

== ENCOUNTER → 2017-02-17 | Outpatient (CLI) | payer OTHER ==
--- NOTE | 2017-02-18 09:39 | DIAGNOSTIC IMAGING REPORT ---
MRI OF THE ABDOMEN WITH AND WITHOUT CONTRAST CLINICAL HISTORY: Adrenal abnormality on prior imaging. Adrenal nodule. COMPARISON STUDY: No previous studies for comparison. TECHNIQUE: Utilizing a 1.5 Lucie magnet and dedicated coil, multiplanar, multiecho imaging of the abdomen was performed pre and postcontrast administration. Post contrast imaging was performed utilizing dynamic enhancement. Injection of 7 cc of Gadavist IV was uneventful. FINDINGS: Note is made of a 2.5 cm round left adrenal mass. This lesion is T2 hyperintense and demonstrates enhancement on the postcontrast images. There is no loss of signal on the out of phase sequence within the central aspect of this lesion. There may be slight loss of signal at the periphery of the lesion. This finding is not diagnostic of an adenoma. The right adrenal gland is unremarkable. There is moderate elevation of the left hemidiaphragm. A few T2 hyperintense nonenhancing left renal lesions reflect cysts. The brain and pancreas are unremarkable. There is suspected mild fatty infiltration of the liver. No abdominal lymphadenopathy or ascites is present. IMPRESSION: 2.5 cm left adrenal mass. By MRI criteria, this lesion remains indeterminate. This may reflect a lipid poor adenoma but an adrenal protocol CT with and without contrast is recommended. Electronically signed by: Jaylan Layton M.D. 02/18/2017 9:37 AM Dictated Date/Time: 02/17/2017 5:35 PM
== END | disposition home or self-care (01) ==
LOC: C.MRI 15:47
PROVIDERS: ATTEND Internal Medicine
DX: E27.9 Disorder of adrenal gland, unspecified (principal); R39.9 Unspecified symptoms and signs involving the genitourinary system

== ENCOUNTER → 2017-02-24 | Outpatient (CLI) | payer OTHER | END | disposition home or self-care (01) | LOC: C.MAMM 12:45 | PROVIDERS: ATTEND Internal Medicine | DX: M85.88 Other specified disorders of bone density and structure, other site (principal) ==

== ENCOUNTER 2017-03-10 14:00 | Emergency (ER) | payer OTHER ==
[~2017-03-10] VITALS: Ht 162.6 cm; Wt 76.3 kg
[~2017-03-10 14:00] MED LIST changes: -AMOX875T PO; -ASPI81TA28 PO; -CEPH500C PO; -CHOLTAB11 PO; -HYDR25TA4 PO; -IBUP-103 PO; -LOSA100T65 PO; -LPT40 PO; -MELO7.5T5 PO; -OXYC1CAP5 PO; -PRLSR20 PO; -RANI150T2 PO
[2017-03-10 14:04] VITALS: TEMP 36.6; Ht 162.6 cm; Wt 76.3 kg
--- NOTE | 2017-03-10 15:01 | EMERGENCY ROOM VISIT NOTE ---
History First contact with patient: 14:57 Chief Complaint: URINARY SYMPTOMS Stated Complaint: FEMALE PAIN Nursing Triage Summary: Pt c/o abd cramping, vag bleeding, painful urination, urinary frequency sx started this morning Pt had full hysterectomy "years" ago History of Present Illness The patient is a 71 year old female who presents to the Emergency Room via private vehicle accompanied by male with complaints of "abdominal cramping, vaginal bleeding, painful urination, urinary frequency. The patient states that this morning she developed what she recalls as a sensation to have to defecate, with abdominal pain. She states that this then moved inferiorly into the lower quadrants followed by cramping, upset stomach and pressure all of which are noted in the pelvic region. She states that it does burn when she urinates, and she is passing large amounts of blood from what she believes is from her vagina, but is only when she urinates. She equivocates the pain to something as if she is on her period. She states that she believes she had a full hysterectomy in the 1970s. She is unsure if this was a total hysterectomy. There is associated lightheadedness, frequency and dysuria. She states that the blood is coming from the vagina. She has never had this before. She denies any blood in the stool. Review of Systems A complete 10-point Review of Systems was discussed with the patient, with pertinent positives and negatives listed in the History of Present Illness. All remaining Review of Systems questions can be considered negative unless otherwise specified. Past Medical/Surgical History Medical Problems: (1) Right Hip Djd Family History No pertinent family history. Social History Smoking Status: Former Smoker Social History: Patient lives at home with family. Current/Historical Medications Scheduled Amoxicillin & Pot Clavulanate (Augmentin 875-125 mg), 1 TAB PO BID Aspirin (Aspirin Ec), 81 MG PO QAM Atorvastatin (Lipitor), 40 MG PO QPM Atorvastatin (Atorvastatin Calcium), 40 MG PO HS Cholecalciferol (Vitamin D3), 1 TAB PO QPM Losartan Potassium (Cozaar), 100 MG PO QPM Nortriptyline (Pamelor), 50 MG PO HS Ranitidine HCl (Ranitidine HCl), 150 MG PO HS Scheduled PRN Ondansetron Hcl (Zofran), 8 MG PO Q8 PRN for Nausea Allergies Coded Allergies: No Known Allergies (Verified , 03/10/17) Physical Exam Vital Signs Date Time Temp Pulse Resp B/P Pulse Ox O2 Delivery O2 Flow Rate FiO2 03/10/17 19:31 88 03/10/17 19:22 87 18 203/98 97 03/10/17 17:30 92 16 179/90 94 03/10/17 16:15 93 180/82 97 Room Air 03/10/17 15:15 95 Room Air 03/10/17 14:04 36.6 112 20 154/77 95 Room Air Physical Exam VITAL SIGNS - Vital signs and nursing notes were reviewed. Patient is afebrile , hypertensive at 154/77, tachycardic at a rate of 112 bpm saturating well on room air 95%. GENERAL -71-year-old female appearing her stated age who is in no acute distress. Communicates well with provider and answers questions appropriately. SKIN - Without rashes. No petechial rashes. HEAD - NC/AT. EYES - Sclera anicteric. Palpebral conjunctiva pink and moist with no injection noted. EARS - No deformities of external structures noted on gross examination bilaterally. NOSE - Midline and without cyanosis. No epistaxis or purulent drainage noted. MOUTH/OROPHARYNX - Without perioral cyanosis. LUNGS - Chest wall symmetric without accessory muscle use, intercostals retractions, or central cyanosis. Normal vesicular breath sounds CTA B/L, with slight crackles in the left base. No wheezes, rales, or rhonchi appreciated. CARDIAC - RRR with S1/S2. No murmur, rubs, or gallops appreciated. ABDOMEN - Abdominal contour without pulsations or visible masses. BS normoactive all four quadrants. There is diffuse lower quadrant/pelvic pain. No palpable masses, hepatosplenomegaly, or ascites noted. There is tenderness in the right upper quadrant as well. EXTREMITIES - No clubbing or peripheral cyanosis. No pretibial edema present. NEUROLOGIC - Cranial nerves II through XII grossly intact. PSYCH - Pt is very pleasant and interacts well with examiner. PELVIC EXAM: The patient's nurse was present to assist with exam, and state attorney. The patient was educated upon what her pelvic exam was, and she was offered to decline. Patient did not decline. I explained to her the pelvic exam. The patient was prepared and positioned for best examination. The examination was performed by physician traffic assistant student, with my direct presence and supervision. Patient did consent to this. Patient was positioned by nurse. The external genitalia, mons pubis, labia majora, labia minora, clitoris, urethral meatus, Bartholin's glands, perineum, and anus were within normal limits. The speculum was held then a 45 angle and properly lubricated, the speculum was inserted without difficulty to the depth of the cervix. Speculum was then open slowly. No cervix was identified. There was no bleeding noted. No blood noted. No laceration noted. The speculum was then closed and removed without difficulty. The exam was concluded, the nurse felt the patient back to her bed. Exam was unremarkable and tolerated well without complication. Medical Decision & Procedures ER Provider Diagnostic Interpretation: ULTRASOUND OF THE PELVIS CLINICAL HISTORY: Vaginal bleeding. Pelvic pain. COMPARISON STUDY: Pelvic CT dated 03/10/2017. TECHNIQUE: Real-time, grayscale, and color flow sonography of the pelvis is performed transabdominally. The patient declined the endovaginal examination. Images are reviewed in the transverse and longitudinal planes. The patient declined the endovaginal examination. FINDINGS: Uterus: The uterus is atrophic and heterogeneous, measuring 5.0 x 2.0 x 2.6 cm. Endometrium: The endometrium is normal as visualized, and the endometrial stripe measures up to 0.3 cm in thickness. Ovaries: The ovaries were not visualized. Pelvis: There is no free fluid in the cul-de-sac. No concerning adnexal lesion is seen. IMPRESSION: 1. Unremarkable transabdominal sonographic assessment of the uterus. 2. The ovaries were not visualized. 3. The patient declined the endovaginal examination. Electronically signed by: Alfonso Kaur M.D. 03/10/2017 6:41 PM Dictated Date/Time: 03/10/2017 6:39 PM ULTRASOUND RIGHT UPPER QUADRANT ABDOMEN CLINICAL HISTORY: Right upper quadrant abdominal pain. COMPARISON STUDY: Abdominal CT dated 03/10/2017. TECHNIQUE: Real-time, grayscale, and color flow sonography of the right upper quadrant of the abdomen was performed. Images are reviewed in the transverse and longitudinal planes. FINDINGS: Liver: The liver is normal in size and demonstrate heterogeneously increased echotexture suggesting hepatic steatosis. There is no intrahepatic biliary ductal dilatation. The main portal vein is patent. Gallbladder: The gallbladder is normal in appearance. No gallstones are identified. There is no gallbladder wall thickening or pericholecystic fluid. A sonographic Holman's sign is reportedly absent. The common bile duct measures up to 0.5 cm in diameter. Pancreas: Visualized portions of the pancreatic head and body are normal in appearance. Right kidney: Survey images of the right kidney demonstrate cortical atrophy. There is no hydronephrosis. Ascites: None. IMPRESSION: 1. No acute sonographic abnormality is identified in the right upper quadrant. No gallstones are seen. 2. Findings suggest hepatic steatosis. Electronically signed by: Alfonso Kaur M.D. 03/10/2017 6:19 PM Dictated Date/Time: 03/10/2017 6:[address] SCAN OF THE ABDOMEN AND PELVIS WITH IV CONTRAST CLINICAL HISTORY: Vaginal bleeding. COMPARISON STUDY: Abdominal MRI dated 02/17/2017. TECHNIQUE: Following the IV administration of 94 cc of Optiray 320, CT scan of the abdomen and pelvis is performed from the lung bases to the proximal femora. Images are reviewed in the axial, sagittal, and coronal planes. IV contrast was administered without complication. Automated dose control exposure was utilized. The examination is degraded by motion artifact. CT DOSE: 953.92 mGycm FINDINGS: Lung bases: The heart is normal in size and without pericardial effusion. The lung bases are clear noting bibasilar atelectasis. Liver: The contrast-enhanced liver is normal in size, contour, and attenuation. There is no intrahepatic biliary ductal dilatation. The hepatic veins and portal veins are patent. Gallbladder: Unremarkable. Spleen: Normal in size and attenuation. Pancreas: Atrophic and grossly unremarkable. Adrenal glands: A 2.7 cm left adrenal nodule is unchanged. The right adrenal gland is normal as imaged. Kidneys: The contrast enhanced kidneys are atrophic and without hydronephrosis. The kidneys enhance symmetrically. Scattered subcentimeter cortical hypodensities likely represent cysts but are too small for definitive characterization. Abdominal vasculature: The abdominal aorta is normal in course and caliber noting moderate to advanced atherosclerotic calcification. Bowel: The small bowel and colon are normal in course and caliber. The appendix is well-visualized and normal. Peritoneum: There is no intraperitoneal free air or abdominal ascites. There is a tiny fat-containing umbilical hernia. Lymphadenopathy: None. Pelvic viscera: Evaluation of the pelvis is degraded by streak artifact from a right hip arthroplasty. The bladder wall is thickened. The uterus and adnexa are normal as visualized. Skeletal structures: The skeletal structures are osteopenic. There is mild lumbosacral spondylosis. There are bilateral pars defects at L5. No lytic or blastic lesions are seen. A right hip arthroplasty is in place. IMPRESSION: 1. The uterus is normal as visualized by CT. Note that vaginal bleeding is appropriately assessed by ultrasound. 2. The bladder wall appears thickened. Correlate clinically and with urinalysis for evidence of cystitis. 3. A 2.7 cm left adrenal nodule is unchanged. See report of adrenal protocol MRI performed 02/17/2017 for detailed findings. 4. Additional findings as above. Electronically signed by: Alfonso Kaur M.D. 03/10/2017 4:57 PM CHEST ONE VIEW PORTABLE CLINICAL HISTORY: Pain, radiating to the abdomen. COMPARISON STUDY: 07/03/2016 FINDINGS: There is mild elevation of the left hemidiaphragm. The heart is within normal limits in size. There is no focal pulmonary consolidation. There is no failure. There are no pleural effusions. There are minor basilar atelectatic changes.[ IMPRESSION: Mild elevation of the left hemidiaphragm. No evidence of failure. No evidence of focal pulmonary consolidation. Electronically signed by: Colten Cardona M.D. 03/10/2017 3:32 PM Dictated Date/Time: 03/10/2017 3:31 PM Laboratory Results 03/10/17 15:25 Red Blood Count 4.87, Mean Corpuscular Volume 85.6, Mean Corpuscular Hemoglobin 27.3, Mean Corpuscular Hemoglobin Concent 31.9, Mean Platelet Volume 9.6, Neutrophils (%) (Auto) 81.3, Lymphocytes (%) (Auto) 10.4, Monocytes (%) (Auto) 6.3, Eosinophils (%) (Auto) 1.3, Basophils (%) (Auto) 0.5, Neutrophils # (Auto) 8.33, Lymphocytes # (Auto) 1.07, Monocytes # (Auto) 0.64, Eosinophils # (Auto) 0.13, Basophils # (Auto) 0.05 03/10/17 15:25 Test 03/10/17 14:10 03/10/17 15:25 Urine Color RED Urine Appearance TURBID (CLEAR) Urine pH 5.5 (4.5-7.5) Urine Specific [place] >= 1.030 (1.000-1.030) Urine Protein 2+ (NEG) Urine Glucose (UA) NEG (NEG) Urine Ketones TRACE (NEG) Urine Occult Blood 3+ (NEG) Urine Nitrite NEG (NEG) Urine Bilirubin NEG (NEG) Urine Urobilinogen NEG (NEG) Urine Leukocyte Esterase SMALL (NEG) Urine RBC >30 /hpf (0-4) Urine WBC >30 /hpf (0-5) Urine Epithelial Cells >30 /lpf (0-5) Urine Bacteria 1+ (NEG) White Blood Count 10.24 K/uL (4.8-10.8) Red Blood Count 4.87 M/uL (4.2-5.4) Hemoglobin 13.3 g/dL (12.0-16.0) Hematocrit 41.7 % (37-47) Mean Corpuscular Volume 85.6 fL (80-100) Mean Corpuscular Hemoglobin 27.3 pg (25-34) Mean Corpuscular Hemoglobin Concent 31.9 g/dl (32-36) Platelet Count 357 K/uL (130-400) Mean Platelet Volume 9.6 fL (7.4-10.4) Neutrophils (%) (Auto) 81.3 % Lymphocytes (%) (Auto) 10.4 % Monocytes (%) (Auto) 6.3 % Eosinophils (%) (Auto) 1.3 % Basophils (%) (Auto) 0.5 % Neutrophils # (Auto) 8.33 K/uL (1.4-6.5) Lymphocytes # (Auto) 1.07 K/uL (1.2-3.4) Monocytes # (Auto) 0.64 K/uL (0.11-0.59) Eosinophils # (Auto) 0.13 K/uL (0-0.5) Basophils # (Auto) 0.05 K/uL (0-0.2) RDW Standard Deviation 46.3 fL (36.4-46.3) RDW Coefficient of Variation 14.8 % (11.5-14.5) Immature Granulocyte % (Auto) 0.2 % Immature Granulocyte # (Auto) 0.02 K/uL (0.00-0.02) Anion Gap 6.0 mmol/L (3-11) Est Creatinine Clear Calc Drug Dose 51.6 ml/min Estimated GFR () 65.6 Estimated GFR (Non- 56.6 BUN/Creatinine Ratio 14.2 (10-20) Calcium Level 9.0 mg/dl (8.5-10.1) Total Bilirubin 0.7 mg/dl (0.2-1) Aspartate Amino Transf (AST/SGOT) 22 U/L (15-37) Alanine Aminotransferase (ALT/SGPT) 34 U/L (12-78) Alkaline Phosphatase 144 U/L (45-117) Total Protein 8.0 gm/dl (6.4-8.2) Albumin 3.7 gm/dl (3.4-5.0) Globulin 4.3 gm/dl (2.5-4.0) Albumin/Globulin Ratio 0.9 (0.9-2) Lipase 125 U/L (73-393) Medications Administered Medications (Trade) Dose Ordered Sig/Greman Route Start Time Stop Time Status Last Admin Dose Admin Ceftriaxone Sodium 1 gm 1 gm NOW STAT IV 03/10/17 17:08 03/10/17 17:10 DC 03/10/17 17:25 1 GM Sodium Chloride 500 ml @ 500 mls/hr Q1H STAT IV 03/10/17 17:30 03/10/17 18:29 DC 03/10/17 17:33 500 MLS/HR Sodium Chloride (Nss 500ml) 500 ml @ 500 mls/hr Q1H STAT IV 03/10/17 17:30 03/10/17 18:29 DC 03/10/17 18:33 500 MLS/HR Amoxicillin/ Clavulanate Potassium (Augmentin 875MG Home Pack) 1 homepack UD STAT PO 03/10/17 19:09 03/10/17 19:11 DC 03/10/17 19:30 1 HOMEPACK Medical Decision The patient was seen and evaluated as above. After obtaining a thorough history and physical examination IV access was initiated and the above workup was performed. The patient presents with pelvic pain, right upper quadrant pain as well as blood from the vaginal region. She denies blood in the stool. Workup was centered around pelvic etiology, however after a normal pelvic exam followed by normal ultrasound of the pelvic region I suspect hemorrhagic cystitis. CT scan of the abdomen and pelvis were performed as above. This does reveal thickening of the bladder wall, further contributing to a diagnosis of hemorrhagic cystitis. Because the patient did have additional wrapper quadrant pain and ultrasound of this region was performed. This is not reveal any acute process. Patient was educated upon the dental findings of today's workup. CBC reveals no leukocytosis or concerning anemia. CMP reveals normal electrolytes, no evidence of kidney or liver failure. Alkaline phosphatase was elevated at 144. Patient's urine does appear to reveal UTI, with 3+ occult blood, greater than 30 red blood cells, white blood cells and urine bacteria. There is no evidence of kidney stone upon examination or imaging. I suspect again hemorrhagic cystitis. She'll be treated with 1 g of Rocephin here intravenously, followed by Augmentin for 10 days. In the absence of nitrites, I do believe that the Augmentin will be providing adequate coverage. The patient was educated upon management as well as importance of follow-up with her family doctor. He was educated upon worrisome symptoms which to return, had questions prior to discharge and was discharged home in good condition. In evaluation treatment this patient following differential diagnoses were entertained: Pelvic mass, tumor, malignant etiology, hemorrhagic cystitis, pelvic laceration, cholecystitis, cholangitis, bowel instruction, among others. Impression Primary Impression: Cystitis, acute hemorrhagic Departure Information Dispostion Home / Self-Care Condition GOOD Prescriptions Amoxicillin & Pot Clavulanate (Augmentin 875-125 mg) 1 Tab Tab 1 TAB PO BID for 9 Days, #18 TAB Prov: Ramírez Marley PA-C 03/10/17 Referrals No Doctor, Assigned (PCP) Patient Instructions My [facility] Additional Instructions You have been treated in the Emergency Department for a Urinary Tract Infection (UTI). You have been prescribed Augmentin to be taken every 12 hours (twice daily). This is an antibiotic. All antibiotics have the potential to cause diarrhea. Stop this medication and contact a medical provider if you were to develop any significant adverse side effects including: wheezing, shortness of breath, passing out, vomiting, or a diffuse rash. Always take antibiotics as directed and COMPLETE the ENTIRE course regardless of the improvement of your symptoms. For pain control, you can use the following [id number] medicines (if >12 yo): - Regular strength (325mg/tab) Tylenol (acetaminophen) 2 tabs every 4-6 hours as needed. Do not exceed 12 tablets in a 24 hour period. Avoid taking more than 3 grams (3000 mg) of Tylenol per day. This includes any other sources of acetaminophen you may take on a regular basis. - Regular strength (200 mg/tab) Advil (ibuprofen) 1-2 tabs every 4-6 hours as needed. Do not exceed a dose of 3200 mg per day. Return to the emergency department if your symptoms worsen despite treatment course outlined above. Drink plenty of water and stay well hydrated. As with any trip to the Emergency Department, you should follow-up with your Primary Care Provider from today's visit. Return to the emergency department if your symptoms persist despite treatment plan outlined above or if the following symptoms occur: increased fevers, chills , low back pain, nausea/vomiting, or increased blood in your urine. Please follow up with your family doctor regarding her blood pressure. Please return to the emergency department with any new/concerning symptoms.
[2017-03-10 15:15] VITALS: O2SAT 95
[2017-03-10] MEDS ORDERED: OPTIRAY 320 IV PRN (15:30)
--- NOTE | 2017-03-10 15:34 | DIAGNOSTIC IMAGING REPORT ---
CHEST ONE VIEW PORTABLE CLINICAL HISTORY: Pain, radiating to the abdomen. COMPARISON STUDY: 07/03/2016 FINDINGS: There is mild elevation of the left hemidiaphragm. The heart is within normal limits in size. There is no focal pulmonary consolidation. There is no failure. There are no pleural effusions. There are minor basilar atelectatic changes.[ IMPRESSION: Mild elevation of the left hemidiaphragm. No evidence of failure. No evidence of focal pulmonary consolidation. Electronically signed by: Colten Cardona M.D. 03/10/2017 3:32 PM Dictated Date/Time: 03/10/2017 3:31 PM
[2017-03-10 15:35] LABS: MANUAL MICROSCOPIC REQUIRED? YES; URINE APPEARANCE TURBID (CLEAR); URINE BILIRUBIN NEG (NEG); URINE COLOR RED; URINE NITRITE NEG (NEG); URINE PH 5.5 (4.5-7.5); URINE SPECIFIC GRAVITY >= 1.030 (1.000-1.030); UROBILINOGEN NEG (NEG)
[2017-03-10 15:38] LABS: REVIEW REQ? NO
--- NOTE | 2017-03-10 15:39 | EMERGENCY ROOM VISIT NOTE ---
ED Visit Note First contact with patient: 14:58 I have seen and examined this patient with Ramírez Marley and generally agree with the treatment plan as discussed. Current/Historical Medications Scheduled Amoxicillin & Pot Clavulanate (Augmentin 875-125 mg), 1 TAB PO BID Aspirin (Aspirin Ec), 81 MG PO QAM Atorvastatin (Lipitor), 40 MG PO QPM Atorvastatin (Atorvastatin Calcium), 40 MG PO HS Cholecalciferol (Vitamin D3), 1 TAB PO QPM Losartan Potassium (Cozaar), 100 MG PO QPM Nortriptyline (Pamelor), 50 MG PO HS Ranitidine HCl (Ranitidine HCl), 150 MG PO HS Scheduled PRN Ondansetron Hcl (Zofran), 8 MG PO Q8 PRN for Nausea Allergies Coded Allergies: No Known Allergies (Verified , 03/10/17) Vital Signs Date Time Temp Pulse Resp B/P Pulse Ox O2 Delivery O2 Flow Rate FiO2 03/10/17 19:31 88 03/10/17 19:22 87 18 203/98 97 03/10/17 17:30 92 16 179/90 94 03/10/17 16:15 93 180/82 97 Room Air 03/10/17 15:15 95 Room Air 03/10/17 14:04 36.6 112 20 154/77 95 Room Air Laboratory Results 03/10/17 15:25 Red Blood Count 4.87, Mean Corpuscular Volume 85.6, Mean Corpuscular Hemoglobin 27.3, Mean Corpuscular Hemoglobin Concent 31.9, Mean Platelet Volume 9.6, Neutrophils (%) (Auto) 81.3, Lymphocytes (%) (Auto) 10.4, Monocytes (%) (Auto) 6.3, Eosinophils (%) (Auto) 1.3, Basophils (%) (Auto) 0.5, Neutrophils # (Auto) 8.33, Lymphocytes # (Auto) 1.07, Monocytes # (Auto) 0.64, Eosinophils # (Auto) 0.13, Basophils # (Auto) 0.05 03/10/17 15:25 Test 03/10/17 14:10 03/10/17 15:25 Urine Color RED Urine Appearance TURBID (CLEAR) Urine pH 5.5 (4.5-7.5) Urine Specific [place] >= 1.030 (1.000-1.030) Urine Protein 2+ (NEG) Urine Glucose (UA) NEG (NEG) Urine Ketones TRACE (NEG) Urine Occult Blood 3+ (NEG) Urine Nitrite NEG (NEG) Urine Bilirubin NEG (NEG) Urine Urobilinogen NEG (NEG) Urine Leukocyte Esterase SMALL (NEG) Urine RBC >30 /hpf (0-4) Urine WBC >30 /hpf (0-5) Urine Epithelial Cells >30 /lpf (0-5) Urine Bacteria 1+ (NEG) White Blood Count 10.24 K/uL (4.8-10.8) Red Blood Count 4.87 M/uL (4.2-5.4) Hemoglobin 13.3 g/dL (12.0-16.0) Hematocrit 41.7 % (37-47) Mean Corpuscular Volume 85.6 fL (80-100) Mean Corpuscular Hemoglobin 27.3 pg (25-34) Mean Corpuscular Hemoglobin Concent 31.9 g/dl (32-36) Platelet Count 357 K/uL (130-400) Mean Platelet Volume 9.6 fL (7.4-10.4) Neutrophils (%) (Auto) 81.3 % Lymphocytes (%) (Auto) 10.4 % Monocytes (%) (Auto) 6.3 % Eosinophils (%) (Auto) 1.3 % Basophils (%) (Auto) 0.5 % Neutrophils # (Auto) 8.33 K/uL (1.4-6.5) Lymphocytes # (Auto) 1.07 K/uL (1.2-3.4) Monocytes # (Auto) 0.64 K/uL (0.11-0.59) Eosinophils # (Auto) 0.13 K/uL (0-0.5) Basophils # (Auto) 0.05 K/uL (0-0.2) RDW Standard Deviation 46.3 fL (36.4-46.3) RDW Coefficient of Variation 14.8 % (11.5-14.5) Immature Granulocyte % (Auto) 0.2 % Immature Granulocyte # (Auto) 0.02 K/uL (0.00-0.02) Anion Gap 6.0 mmol/L (3-11) Est Creatinine Clear Calc Drug Dose 51.6 ml/min Estimated GFR () 65.6 Estimated GFR (Non- 56.6 BUN/Creatinine Ratio 14.2 (10-20) Calcium Level 9.0 mg/dl (8.5-10.1) Total Bilirubin 0.7 mg/dl (0.2-1) Aspartate Amino Transf (AST/SGOT) 22 U/L (15-37) Alanine Aminotransferase (ALT/SGPT) 34 U/L (12-78) Alkaline Phosphatase 144 U/L (45-117) Total Protein 8.0 gm/dl (6.4-8.2) Albumin 3.7 gm/dl (3.4-5.0) Globulin 4.3 gm/dl (2.5-4.0) Albumin/Globulin Ratio 0.9 (0.9-2) Lipase 125 U/L (73-393) Date/Time Source Procedure Growth Status 03/10/17 14:10 Urine , Clean Catch Urine Culture - Final Escherichia Coli Complete Medications Administered Medications (Trade) Dose Ordered Sig/German Route Start Time Stop Time Status Last Admin Dose Admin Ceftriaxone Sodium 1 gm 1 gm NOW STAT IV 03/10/17 17:08 03/10/17 17:10 DC 03/10/17 17:25 1 GM Sodium Chloride 500 ml @ 500 mls/hr Q1H STAT IV 03/10/17 17:30 03/10/17 18:29 DC 03/10/17 17:33 500 MLS/HR Sodium Chloride (Nss 500ml) 500 ml @ 500 mls/hr Q1H STAT IV 03/10/17 17:30 03/10/17 18:29 DC 03/10/17 18:33 500 MLS/HR Amoxicillin/ Clavulanate Potassium (Augmentin 875MG Home Pack) 1 homepack UD STAT PO 03/10/17 19:09 03/10/17 19:11 DC 03/10/17 19:30 1 HOMEPACK Departure Information Prescriptions Amoxicillin & Pot Clavulanate (Augmentin 875-125 mg) 1 Tab Tab 1 TAB PO BID for 9 Days, #18 TAB Prov: Ramírez Marley, LAURIE 03/10/17 Referrals No Doctor, Assigned (PCP) Patient Instructions [facility]
[2017-03-10 15:47] LABS: BASO % 0.5 %; BASO ABS # 0.05 K/uL (0-0.2); COMPLETE YES; EOS % 1.3 %; HEMATOCRIT 41.7 % (37-47); IG% 0.2 %; LYMPH % 10.4 %; LYMPH ABS # 1.07 K/uL (1.2-3.4); MEAN CELL VOLUME 85.6 fL (80-100); MEAN CORPUSCULAR HEMOGLOBIN 27.3 pg (25-34); MEAN CORPUSCULAR HGB CONC 31.9 g/dl (32-36); MEAN PLATELET VOLUME 9.6 fL (7.4-10.4); MONO % 6.3 %; NEUT % 81.3 %; PLATELET COUNT 357 K/uL (130-400); RED BLOOD COUNT 4.87 M/uL (4.2-5.4); WHITE BLOOD COUNT 10.24 K/uL (4.8-10.8)
[2017-03-10 15:52] LABS: URINE BACTERIA 1+ (NEG); URINE RBC >30 /hpf (0-4); URINE WBC >30 /hpf (0-5)
[2017-03-10 15:53] LABS: ZZUR CULT IF INDIC CLEAN CATCH YES
[2017-03-10 16:04] LABS: BUN/CREATININE RATIO 14.2 (10-20); POTASSIUM 4.1 mmol/L (3.5-5.1)
[2017-03-10 16:07] LABS: ALB/GLOB RATIO 0.9 (0.9-2)
[2017-03-10] MEDS ORDERED: ASPI81TA28 PO (16:43)
[2017-03-10] MEDS ORDERED: LOSA100T65 PO (16:51)
--- NOTE | 2017-03-10 17:00 | DIAGNOSTIC IMAGING REPORT ---
CT SCAN OF THE ABDOMEN AND PELVIS WITH IV CONTRAST CLINICAL HISTORY: Vaginal bleeding. COMPARISON STUDY: Abdominal MRI dated 02/17/2017. TECHNIQUE: Following the IV administration of 94 cc of Optiray 320, CT scan of the abdomen and pelvis is performed from the lung bases to the proximal femora. Images are reviewed in the axial, sagittal, and coronal planes. IV contrast was administered without complication. Automated dose control exposure was utilized. The examination is degraded by motion artifact. CT DOSE: 953.92 mGycm FINDINGS: Lung bases: The heart is normal in size and without pericardial effusion. The lung bases are clear noting bibasilar atelectasis. Liver: The contrast-enhanced liver is normal in size, contour, and attenuation. There is no intrahepatic biliary ductal dilatation. The hepatic veins and portal veins are patent. Gallbladder: Unremarkable. Spleen: Normal in size and attenuation. Pancreas: Atrophic and grossly unremarkable. Adrenal glands: A 2.7 cm left adrenal nodule is unchanged. The right adrenal gland is normal as imaged. Kidneys: The contrast enhanced kidneys are atrophic and without hydronephrosis. The kidneys enhance symmetrically. Scattered subcentimeter cortical hypodensities likely represent cysts but are too small for definitive characterization. Abdominal vasculature: The abdominal aorta is normal in course and caliber noting moderate to advanced atherosclerotic calcification. Bowel: The small bowel and colon are normal in course and caliber. The appendix is well-visualized and normal. Peritoneum: There is no intraperitoneal free air or abdominal ascites. There is a tiny fat-containing umbilical hernia. Lymphadenopathy: None. Pelvic viscera: Evaluation of the pelvis is degraded by streak artifact from a right hip arthroplasty. The bladder wall is thickened. The uterus and adnexa are normal as visualized. Skeletal structures: The skeletal structures are osteopenic. There is mild lumbosacral spondylosis. There are bilateral pars defects at L5. No lytic or blastic lesions are seen. A right hip arthroplasty is in place. IMPRESSION: 1. The uterus is normal as visualized by CT. Note that vaginal bleeding is appropriately assessed by ultrasound. 2. The bladder wall appears thickened. Correlate clinically and with urinalysis for evidence of cystitis. 3. A 2.7 cm left adrenal nodule is unchanged. See report of adrenal protocol MRI performed 02/17/2017 for detailed findings. 4. Additional findings as above. Electronically signed by: Alfonso Kaur M.D. 03/10/2017 4:57 PM Dictated Date/Time: 03/10/2017 4:52 PM
[2017-03-10] MEDS ORDERED: RANI150T2 PO (17:04)
[2017-03-10] MEDS ORDERED: LPT40 PO (17:04)
[2017-03-10] MEDS ORDERED: CEFTRIAXONE SOD INJ 1 GM ADDVIAL IV STA (17:08)
[2017-03-10] MEDS ORDERED: SODIUM CHLORIDE 0.9% 500ML 500 ML IV STA ×2 (17:30)
--- NOTE | 2017-03-10 18:22 | DIAGNOSTIC IMAGING REPORT ---
ULTRASOUND RIGHT UPPER QUADRANT ABDOMEN CLINICAL HISTORY: Right upper quadrant abdominal pain. COMPARISON STUDY: Abdominal CT dated 03/10/2017. TECHNIQUE: Real-time, grayscale, and color flow sonography of the right upper quadrant of the abdomen was performed. Images are reviewed in the transverse and longitudinal planes. FINDINGS: Liver: The liver is normal in size and demonstrate heterogeneously increased echotexture suggesting hepatic steatosis. There is no intrahepatic biliary ductal dilatation. The main portal vein is patent. Gallbladder: The gallbladder is normal in appearance. No gallstones are identified. There is no gallbladder wall thickening or pericholecystic fluid. A sonographic Holman's sign is reportedly absent. The common bile duct measures up to 0.5 cm in diameter. Pancreas: Visualized portions of the pancreatic head and body are normal in appearance. Right kidney: Survey images of the right kidney demonstrate cortical atrophy. There is no hydronephrosis. Ascites: None. IMPRESSION: 1. No acute sonographic abnormality is identified in the right upper quadrant. No gallstones are seen. 2. Findings suggest hepatic steatosis. Electronically signed by: Alfonso Kaur M.D. 03/10/2017 6:19 PM Dictated Date/Time: 03/10/2017 6:18 PM
--- NOTE | 2017-03-10 18:43 | DIAGNOSTIC IMAGING REPORT ---
ULTRASOUND OF THE PELVIS CLINICAL HISTORY: Vaginal bleeding. Pelvic pain. COMPARISON STUDY: Pelvic CT dated 03/10/2017. TECHNIQUE: Real-time, grayscale, and color flow sonography of the pelvis is performed transabdominally. The patient declined the endovaginal examination. Images are reviewed in the transverse and longitudinal planes. The patient declined the endovaginal examination. FINDINGS: Uterus: The uterus is atrophic and heterogeneous, measuring 5.0 x 2.0 x 2.6 cm. Endometrium: The endometrium is normal as visualized, and the endometrial stripe measures up to 0.3 cm in thickness. Ovaries: The ovaries were not visualized. Pelvis: There is no free fluid in the cul-de-sac. No concerning adnexal lesion is seen. IMPRESSION: 1. Unremarkable transabdominal sonographic assessment of the uterus. 2. The ovaries were not visualized. 3. The patient declined the endovaginal examination. Electronically signed by: Alfonso Kaur M.D. 03/10/2017 6:41 PM Dictated Date/Time: 03/10/2017 6:39 PM
[2017-03-10] MEDS ORDERED: AMOX875T PO (19:08)
[2017-03-10] MEDS ORDERED: AMOXICIL/CLAVU 875MG HOME PACK PO STA (19:09)
[2017-03-10 19:22] VITALS: BP 203/98; O2SAT 97
[2017-03-10 19:31] VITALS: PULSE 88
--- NOTE | 2017-03-12 16:28 | Pharmacy Progress Note ---
ED Pharmacist Culture FollowUp Date of Service: Mar 12, 2017. Patient was sent home with a prescription for Augmentin, which should cover the E. coli growing from the patient's urine culture.
== END 2017-03-10 19:47 | disposition home or self-care (01) ==
LOC: C.EDB 14:01 → C.EDA 19:47
DX: N30.00 Acute cystitis without hematuria (principal); Z90.710 Acquired absence of both cervix and uterus; M16.11 Unilateral primary osteoarthritis, right hip; Z87.891 Personal history of nicotine dependence; Z79.82 Long term (current) use of aspirin

== ENCOUNTER → 2017-03-31 | Outpatient (CLI) | payer OTHER ==
[~2017-03-31] MED LIST changes: -ACET-1138 PO; -ASPEC81 PO; +ASPI81TA28 PO; +CEPH500C PO; +CHOLTAB11 PO; +HYDR25TA4 PO; +IBUP-103 PO; +LOSA100T65 PO; -LOSA50TA54 PO; +LPT40 PO; -LSN5 PO; +MELO7.5T5 PO; +OXYC1CAP5 PO; +PRLSR20 PO; +RANI150T2 PO; -RXC5 PO
[2017-04-04 13:38] LABS: NORMETANEPHRINE PLASMA 216 pg/mL (<=148); TOTAL METANEPHRINE PLASMA 261 pg/mL (<=205)
== END | disposition home or self-care (01) ==
LOC: C.LAB1850 08:05
PROVIDERS: ATTEND Internal Medicine Endocrinology, Diabetes & Metabolism
DX: E27.9 Disorder of adrenal gland, unspecified (principal)

== ENCOUNTER → 2017-04-04 | Outpatient (CLI) | payer OTHER ==
--- NOTE | 2017-04-04 13:24 | DIAGNOSTIC IMAGING REPORT ---
ULTRASOUND OF THE THYROID GLAND CLINICAL HISTORY: Foreign body sensation in the throat. COMPARISON STUDY: No priors. TECHNIQUE: Real-time, grayscale, and color flow sonography of the thyroid gland is performed utilizing a high-frequency linear transducer. Images are reviewed in the transverse and longitudinal planes. FINDINGS: Right lobe: The right lobe of the thyroid gland is normal in size and homogeneous in echotexture, measuring 4.1 x 1.4 x 1.5 cm. A honeycomb nodule in the posterior midpole measures 0.7 x 0.5 x 0.7 cm, and a honeycomb nodule in the anterior midpole measures 0.6 x 0.5 x 0.6 cm. Left lobe: The left lobe of the thyroid gland is normal in size and homogeneous in echotexture, measuring 4.2 x 1.5 x 1.4 cm. A honeycomb nodule in the lower pole measures 0.7 x 0.6 x 0.6 cm, and honeycomb nodule in the lateral mid pole measures 0.5 x 0.4 x 0.5 cm. Isthmus: The thyroid isthmus is normal in appearance and measures 0.3 cm in AP diameter. IMPRESSION: 1. The thyroid gland is normal in size and echotexture. 2. Scattered benign-appearing subcentimeter nodules are incidentally noted. Electronically signed by: Alfonso Kaur M.D. 04/04/2017 1:22 PM Dictated Date/Time: 04/04/2017 1:20 PM
== END | disposition home or self-care (01) ==
LOC: C.ULTR 11:47
PROVIDERS: ATTEND Internal Medicine
DX: R09.89 Other specified symptoms and signs involving the circulatory and respiratory systems (principal); E04.2 Nontoxic multinodular goiter

== ENCOUNTER → 2017-05-02 | Outpatient (CLI) | payer OTHER ==
[2017-05-02 19:19] LABS: ALT/SGPT 29 U/L (12-78); AST/SGOT 20 U/L (15-37); BLOOD UREA NITROGEN 18 mg/dl (7-18); BUN/CREATININE RATIO 18.2 (10-20); CALCIUM 8.8 mg/dl (8.5-10.1); CHLORIDE 102 mmol/L (98-107); GLUCOSE 81 mg/dl (70-99); POTASSIUM 3.4 mmol/L (3.5-5.1); SODIUM 140 mmol/L (136-145)
[2017-05-02 19:21] LABS: CARBON DIOXIDE 28 mmol/L (21-32)
[2017-05-02 19:29] LABS: ALB/GLOB RATIO 0.8 (0.9-2); ALKALINE PHOSPHATASE 127 U/L (45-117)
[2017-05-03 07:36] LABS: ESTIMATED AVERAGE GLUCOSE 137 mg/dl; HA1C FLAG Normal (Normal)
== END | disposition home or self-care (01) ==
LOC: C.LABBFT 17:19
PROVIDERS: ATTEND Internal Medicine
DX: I10 Essential (primary) hypertension (principal); E11.9 Type 2 diabetes mellitus without complications; R41.3 Other amnesia; M85.80 Other specified disorders of bone density and structure, unspecified site

== ENCOUNTER → 2017-05-14 | Outpatient (CLI) | payer OTHER ==
[2017-05-14 12:40] LABS: ESTIMATED AVERAGE GLUCOSE 140 mg/dl; HA1C FLAG Normal (Normal)
[2017-05-14 13:03] LABS: BLOOD UREA NITROGEN 16 mg/dl (7-18); BUN/CREATININE RATIO 16.9 (10-20); CALCIUM 9.2 mg/dl (8.5-10.1); CARBON DIOXIDE 27 mmol/L (21-32); CHLORIDE 103 mmol/L (98-107); CREATININE 0.93 mg/dl (0.60-1.20); GLUCOSE 120 mg/dl (70-99); POTASSIUM 3.9 mmol/L (3.5-5.1); SODIUM 138 mmol/L (136-145)
[2017-05-14 15:30] LABS: RATIO 12.9 mcg/mg (0-30.0)
[2017-05-16 07:57] LABS: ALBUMIN 3.9 G/DL (3.8-4.8); GAMMA GLOBULIN 1.3 G/DL (0.8-1.7); TOTAL PROTEIN 7.5 G/DL (6.2-8.3)
== END | disposition home or self-care (01) ==
LOC: C.LABBFT 10:45
PROVIDERS: ATTEND Internal Medicine
DX: E11.9 Type 2 diabetes mellitus without complications (principal); I10 Essential (primary) hypertension; R41.3 Other amnesia; E87.6 Hypokalemia

== ENCOUNTER → 2017-05-15 | Outpatient (CLI) | payer OTHER ==
[2017-05-21 15:20] LABS: CREATININE UR 84 MG/DL (20-320)
== END | disposition home or self-care (01) ==
LOC: C.LABBFT 11:13
PROVIDERS: ATTEND Internal Medicine
DX: E87.6 Hypokalemia (principal)

== ENCOUNTER → 2017-07-10 | Outpatient (CLI) | payer OTHER ==
[~2017-07-10] MED LIST changes: -ONDA8TAB6 PO
--- NOTE | 2017-07-10 10:07 | DIAGNOSTIC IMAGING REPORT ---
CERVICAL SPINE 2 OR 3 VIEWS CLINICAL HISTORY: Neck pain. COMPARISON STUDY: No previous studies for comparison. FINDINGS: Inferior endplate of C7 is slightly obscured on this exam. Alignment of the cervical spine is anatomic. Vertebral body heights are maintained. There is no acute fracture or suspicious lesion. There is mild disc space narrowing with moderate osteophytosis of the cervical spine. There is moderate facet arthrosis. IMPRESSION: 1. No cervical spine fracture or subluxation identified. Slight obscuration of the inferior endplate of C7. 2. Moderate multilevel degenerative disc disease and facet arthrosis. Electronically signed by: Jaylan Layton M.D. 07/10/2017 10:06 AM Dictated Date/Time: 07/10/2017 10:05 AM
== END | disposition home or self-care (01) ==
LOC: C.RAD 09:32
PROVIDERS: ATTEND Nurse Practitioner
DX: M54.2 Cervicalgia (principal); M50.30 Other cervical disc degeneration, unspecified cervical region; M47.892 Other spondylosis, cervical region

== ENCOUNTER 2017-07-16 10:36 | Emergency (ER) | payer OTHER ==
[~2017-07-16] VITALS: Ht 162.6 cm; Wt 75.7 kg
[~2017-07-16 10:36] MED LIST changes: -CEPH500C PO; -CHOLTAB11 PO; -HYDR25TA4 PO; -IBUP-103 PO; -MELO7.5T5 PO; -OXYC1CAP5 PO; -PRLSR20 PO
[2017-07-16 10:44] VITALS: TEMP 36.9; Ht 162.6 cm; Wt 75.7 kg
[2017-07-16] MEDS ORDERED: XYLOCAINE 1%/SOD BICARB 20 ML VIAL INFIL STA (11:10)
[2017-07-16] MEDS ORDERED: BUPIVACAINE 0.5 % 5 MG/1 ML MPF 30ML VIAL INFIL STA (11:10)
[2017-07-16] MEDS ORDERED: DIPHTHERIA/TETANUS/PERTUSSIS 0.5 ML SYR/VIAL IM. ONE (11:15)
[2017-07-16] MEDS ORDERED: CHOLTAB11 PO (11:30)
[2017-07-16] MEDS ORDERED: OXYC1CAP5 PO (11:35)
[2017-07-16] MEDS ORDERED: HYDR25TA4 PO (11:36)
[2017-07-16] MEDS ORDERED: PRLSR20 PO (11:38)
[2017-07-16] MEDS ORDERED: MELO7.5T5 PO (11:39)
--- NOTE | 2017-07-16 11:40 | DIAGNOSTIC IMAGING REPORT ---
LEFT HAND MIN 3 VIEWS ROUTINE CLINICAL HISTORY: Laceration to 4th and 5th digits. Concern for fracture. COMPARISON: None FINDINGS: There is a vertical lucency through the distal phalanx of the left fourth finger. A nondisplaced fracture is favored. No additional fractures are identified within the left hand. Carpal bones are intact. Mild arthritis is noted within multiple articulations. IMPRESSION: Lucency within the distal phalanx of left fourth finger. A nondisplaced acute fracture is favored. A vascular channel could appear similar although is considered less likely. Electronically signed by: Jaylan Layton M.D. 07/16/2017 11:39 AM Dictated Date/Time: 07/16/2017 11:33 AM
[2017-07-16] MEDS ORDERED: IBUP-103 PO (11:42)
--- NOTE | 2017-07-16 11:46 | EMERGENCY ROOM VISIT NOTE ---
ED Visit Note First contact with patient: 11:06 Chief Complaint: "finger slammed in door". History of Present Illness: This patient is a 71-year-old female who presents to the Emergency Department via private vehicle coming by for evaluation of their left fourth and fifth digit lacerations. Patient sustained the laceration while attempting to shut her apartment door, when she accidentally shut her left fourth and fifth digits in the door. They report a moderate amount of bleeding initially. They deny any numbness or tingling into the distal extremity. They report no decreased range of motion of the affected digit. They have tried Advil for the pain which was beneficial. Patient rates her current discomfort as a 4/10. Patient's Tetanus status is unknown. Medications: As noted below Allergies: None PMH: As noted below SHx: Patient currently lives locally with her . ROS: All pertinent positive and negative review of systems are appropriately documented in the History of Present Illness. Physical Exam: VITAL SIGNS - Vital signs and nursing notes were reviewed. Patient is afebrile , hypertensive 150/64, non-tachycardic and is saturating well on room air at 96% . GENERAL -71-year-old female appearing her stated age who is in no acute distress. Communicates well with provider and answers questions appropriately. SKIN - There is a 2 cm long laceration noted at the flexor crease of the left fifth and fourth DIP. Total laceration length is 4 cm. The edges gape apart with traction. No foreign bodies appreciated. Upon further examination there are no deep structures including vessel, tendon, or bony structures appreciated , however there is evidence of underlying fracture radiographs. There is no active bleeding noted. MUSCULOSKELETAL - Laceration as described above. +5/5 strength appreciated of the affected digit. Full range of motion of the affected digit. NEUROLOGIC - Spinothalamic tract was found to be intact with ability to discriminate sharp versus dull sensation. No sensory defects of the dorsal column were appreciated utilizing light touch for evaluation. VASCULAR - Capillary refill was brisk. IMAGING: LEFT HAND MIN 3 VIEWS ROUTINE CLINICAL HISTORY: Laceration to 4th and 5th digits. Concern for fracture. COMPARISON: None FINDINGS: There is a vertical lucency through the distal phalanx of the left fourth finger. A nondisplaced fracture is favored. No additional fractures are identified within the left hand. Carpal bones are intact. Mild arthritis is noted within multiple articulations. IMPRESSION: Lucency within the distal phalanx of left fourth finger. A nondisplaced acute fracture is favored. A vascular channel could appear similar although is considered less likely. Electronically signed by: Jaylan Layton M.D. 07/16/2017 11:39 AM Dictated Date/Time: 07/16/2017 11:33 AM ED Course: Patient was seen and evaluated by myself. Risks and benefits of performing primary wound closure versus no repair were discussed with the patient who verbalizes understanding. Verbal consent was obtained prior to performing the procedure. Because of the injury, radiograph were obtained, with results as above. There is a fracture, same location of the laceration. This is concerning for open fracture. The case was discussed with Dr. Charles, a hand surgeon. It was discussed with the patient we prophylactic Keflex secondary to concern for open fracture, the wound be cleansed thoroughly, patient be placed in a Xeroform, bulky dressing with metal splint applied. She is to call his office to schedule follow-up for tomorrow. 3 cc of 1% buffered lidocaine and 0.5% bupivacaine in a 50/50 ratio was used to perform a digital block of the fourth and fifth digit. The wound was cleansed and prepped in the typical sterile fashion utilizing normal saline and Betadine. The wound was sterilely draped. Once proper anesthetization was established, the wound was further examined and demonstrated no deep involvement. The wound was copiously irrigated with normal saline and Betadine. The wound was closed using 4 simple, 5-0 nylon sutures with the wound edges being well approximated of both fingers, for a total of 8 sutures. Patient tolerated the procedure well. No complications were met. The wound was cleansed and dressed with a Bacitracin dressing. A metal splint was applied to the finger for comfort 2. Patient received their Adacel vaccination. Patient educated on worrisome symptoms for return visit to the Emergency Department. Patient discharged to home in good condition. Later in the patient's stay she also noted that she had some dysuria, and urinary frequency. UA was obtained. This does reveal chance of UTI. She denies any back or abdominal pain at present. Because she'll be prophylaxed with Keflex, I do believe this will cover her for any UTI pathogens, with culture pending. She is to follow-up with her family doctor. She was called with these results. In the evaluation and treatment of this patient, the following differential diagnoses were considered: Kidney Stone, STI, Bladder Cancer, Amongst Others, Finger Fracture, Finger Dislocation, Finger Sprain, Finger Contusion, [place] Finger, or Mallet Finger. Med list reviewed, BP elevated likely secondary to situation. Impression: [] Finger laceration Current/Historical Medications Scheduled Aspirin (Aspirin Ec), 81 MG PO QAM Atorvastatin (Lipitor), 40 MG PO QPM Cephalexin Monohydrate (Keflex), 500 MG PO TID Cholecalciferol (D-5000), 5,000 UNITS PO DAILY Hydrochlorothiazide (Hctz), 25 MG PO DAILY Losartan Potassium (Cozaar), 100 MG PO DAILY Meloxicam (Mobic), 7.5-15 MG PO DAILY Nortriptyline (Pamelor), 50 MG PO HS Omeprazole (Prilosec), 20 MG PO UD Ranitidine HCl (Ranitidine HCl), 150 MG PO HS Scheduled PRN Ibuprofen Tab (Advil), 400 MG PO DAILY PRN for Pain Oxycodone Hcl (Oxycodone Hcl), 5-10 MG PO Q4 PRN for Pain Allergies Coded Allergies: No Known Allergies (Verified , 07/16/17) Vital Signs Date Time Temp Pulse Resp B/P (MAP) Pulse Ox O2 Delivery O2 Flow Rate FiO2 07/16/17 12:58 76 20 146/88 98 07/16/17 10:44 36.9 78 20 150/64 96 Room Air Laboratory Results Test 07/16/17 12:35 Urine Color YELLOW Urine Appearance CLOUDY (CLEAR) Urine pH 6.5 (4.5-7.5) Urine Specific [place] 1.008 (1.000-1.030) Urine Protein NEG (NEG) Urine Glucose (UA) NEG (NEG) Urine Ketones NEG (NEG) Urine Occult Blood 2+ (NEG) Urine Nitrite NEG (NEG) Urine Bilirubin NEG (NEG) Urine Urobilinogen NEG (NEG) Urine Leukocyte Esterase LARGE (NEG) Urine WBC (Auto) >30 /hpf (0-5) Urine RBC (Auto) 5-10 /hpf (0-4) Urine Hyaline Casts (Auto) 1-5 /lpf (0-5) Urine Epithelial Cells (Auto) 0-5 /lpf (0-5) Urine Bacteria (Auto) 4+ (NEG) Medications Administered Medications (Trade) Dose Ordered Sig/German Route Start Time Stop Time Status Last Admin Dose Admin Diphtheria/ Pertussis/Tetanus Vacc (Adacel Inj) 0.5 ml ONCE ONCE IM. 07/16/17 11:15 07/16/17 11:16 DC 07/16/17 11:17 0.5 ML Cephalexin Monohydrate (Keflex Cap) 500 mg NOW STAT PO 07/16/17 12:39 07/16/17 12:40 DC 07/16/17 12:52 500 MG Departure Information Impression Primary Impression: Finger laceration Additional Impressions: Finger fracture UTI (urinary tract infection) Dispostion Home / Self-Care Condition GOOD Prescriptions Cephalexin Monohydrate (Keflex) 500 Mg Cap 500 MG PO TID for 7 Days, #21 CAP Prov: Ramírez Marley PA-C 07/16/17 Referrals Anjel Munroe M.D. (PCP) Anjel Charles MD Patient Instructions [facility] Additional Instructions Discharge Instructions: You have received 8 sutures on your fingers. These sutures are NOT dissolvable and WILL need to be removed by a health care provider in 12-14 days. You can return to the Emergency Department or contact your Primary Care Provider to have the sutures removed. Please wear the splint for comfort until the sutures are removed. Please call Dr. Charles's office, number provided her today to schedule follow- up for tomorrow. Proper wound care is essential for adequate wound healing and infection prevention. You can shower and clean the wound with soap and water. Do not scour over the wound, pat dry with a towel. Do not submerse the wound (i.e. bathe or dish wash) until the sutures have been removed. You can use an antibiotic ointment with a dressing over the wound for the next 3-4 days. After this time you may leave the wound dry and open to the air. If crust develops over the wound you can use a Q-tip to apply a 1:1 peroxide:water solution to clean the wound. Look for signs of infection of the wound including: increased pain, swelling, foul discharge, streaking, or increased temperature. If any of these are noticed you should return to the Emergency Department for further assessment and treatment. As with any laceration you may have received nerve damage to the surrounding tissues. This damage may or may not be permanent. You should keep the area covered with sunscreen for the first 6 months to 1 year when at risk for exposure to help minimize scarring. You can also use scar reducing creams or Vitamin E oil to help minimize scarring. Please follow-up with your family doctor regarding elevated blood pressure here today, as well as her urinary symptoms. Return to the emergency department if your symptoms worsen despite treatment course outlined above. Please take the Keflex as prescribed to help prevent infection. Problem Qualifiers
--- NOTE | 2017-07-16 12:25 | EMERGENCY ROOM VISIT NOTE ---
ED Visit Note First contact with patient: 11:06 I did evaluate and examine this patient myself. I did guide management for the patient. I agree with the APC's assessment as discussed. Please see the APC's dictation for further details. I did independently review the x-rays. The patient was given a tetanus shot. She has an open fracture to the fourth digit. The wounds were repaired and the case discussed with hand surgery. The patient will follow up in the office with the hand surgeon tomorrow.
[2017-07-16] MEDS ORDERED: CEPHALEXIN MONOHYDRATE 250 MG CAP PO STA (12:39)
[2017-07-16] MEDS ORDERED: CEPH500C PO (12:40)
[2017-07-16 12:58] VITALS: BP 146/88; PULSE 76; O2SAT 98
[2017-07-16 13:28] LABS: URINE APPEARANCE CLOUDY (CLEAR); URINE BILIRUBIN NEG (NEG); URINE COLOR YELLOW; URINE EPITHELIAL CELL AUTO 0-5 /lpf (0-5); URINE NITRITE NEG (NEG); URINE PH 6.5 (4.5-7.5); URINE SPECIFIC GRAVITY 1.008 (1.000-1.030); UROBILINOGEN NEG (NEG); ZZUR CULT IF INDIC CLEAN CATCH YES
[2017-07-16 13:32] LABS: MANUAL MICROSCOPIC REQUIRED? NO; REVIEW REQ? NO
--- NOTE | 2017-07-18 12:33 | Pharmacy Progress Note ---
ED Pharmacist Culture FollowUp Date of Service: Jul 18, 2017. Patient was sent home with a prescription for cephalexin, which should cover the E. coli growing from the patient's urine culture, based on reported sensitivity to cefazolin.
== END 2017-07-16 12:59 | disposition home or self-care (01) ==
LOC: C.EDB 10:39 → C.EDD 12:59
DX: S62.665B Nondisplaced fracture of distal phalanx of left ring finger, initial encounter for open fracture (principal); W23.0XXA Caught, crushed, jammed, or pinched between moving objects, initial encounter; Y92.039 Unspecified place in apartment as the place of occurrence of the external cause; N39.0 Urinary tract infection, site not specified; Z23 Encounter for immunization; Z79.82 Long term (current) use of aspirin; Z79.899 Other long term (current) drug therapy

== ENCOUNTER → 2017-09-05 | Outpatient (CLI) | payer OTHER ==
[~2017-09-05] MED LIST changes: +CHOLTAB11 PO; +HYDR25TA4 PO; +IBUP-103 PO; -LPT40 PO; +MELO7.5T5 PO; +OXYC1CAP5 PO; +PRLSR20 PO; -VTMD1000 PO
[2017-09-05 13:01] LABS: BLOOD UREA NITROGEN 18 mg/dl (7-18)
[2017-09-08 14:28] LABS: NORMETANEPHRINE PLASMA 273 pg/mL (<=148); TOTAL METANEPHRINE PLASMA 315 pg/mL (<=205)
== END | disposition home or self-care (01) ==
LOC: C.LAB 10:41
PROVIDERS: ATTEND Internal Medicine Endocrinology, Diabetes & Metabolism
DX: E27.9 Disorder of adrenal gland, unspecified (principal); R39.9 Unspecified symptoms and signs involving the genitourinary system

== ENCOUNTER → 2017-09-22 | Outpatient (CLI) | payer OTHER ==
[~2017-09-22] MED LIST changes: +OPTIRAY 320 IV PRN
--- NOTE | 2017-09-22 12:42 | DIAGNOSTIC IMAGING REPORT ---
ABD/PELVIS COMBO CLINICAL HISTORY: 72 years-old Female presenting with R39.9,E27.9, adrenal nodule. TECHNIQUE: Multidetector CT of the abdomen and pelvis was performed before and after the administration of intravenous contrast. IV contrast: 110 mL of Optiray 320. A dose lowering technique was used consistent with the principles of ALARA (as low as reasonably achievable). COMPARISON: None. CT DOSE (mGy.cm): The estimated cumulative dose is 2246.10 mGycm. FINDINGS: Complaint Evaluation Officer topogram: Total right hip arthroplasty. Lung bases: Lung bases clear. Normal heart size. Aortic valve calcification. No pericardial or pleural effusion. Liver: Normal morphology. Borderline hepatic steatosis. Subcentimeter hypodensity in the caudate, unchanged, likely hepatic cyst or hamartoma. Patent hepatic vasculature. Biliary: No intrahepatic or extrahepatic biliary ductal dilatation. Normal gallbladder. Pancreas: Moderate parenchymal atrophy. Spleen: Normal. Adrenal glands: 2.7 cm left adrenal nodule has a density of 26 Hounsfield units on precontrast, 52 Hounsfield units on portal venous phase, and 62 Hounsfield units on 15 minute delayed. This has an absolute washout of -38.5% relative washout of -19.2%. This is indeterminate. Right adrenal gland normal. Kidneys: Deformity of the posterior lateral aspect of the left kidney with relative expansion of the collecting system and absence of overlying cortex likely indicates reflux nephropathy. This spares the upper and lower poles. Few subcentimeter simple cysts suspected. Few parapelvic cysts also likely present in the left kidney. Extrarenal pelvises noted. No hydronephrosis. Mild apparent urothelial thickening. No nephrolithiasis. Bladder: Mildly thick-walled and trabeculated. Pelvic organs: Uterus and ovaries normal. Bowel: Lipomatous hypertrophy of the ileocecal valve. Normal appendix. No bowel obstruction. Peritoneal cavity: No free fluid or intraperitoneal gas. Lymph nodes: No enlarged lymph nodes in the abdomen or pelvis. Vasculature: Atherosclerosis of the normal caliber abdominal aorta. Calcified and noncalcified atherosclerotic plaque resulting in intimal irregularity along the aorta. IVC patent. Abdominal wall: Normal. Musculoskeletal: Total right hip arthroplasty with resulting streak artifact mildly degrading evaluation of the pelvis. Degenerative changes of the spine. IMPRESSION: 1. Stable appearance of the 2.7 cm left adrenal nodule, which is indeterminate. This has been indeterminate by MR and adrenal protocol CT. If there is continuing clinical concern, surgical consultation to be considered. The relatively small size of this lesion could favor a benign diagnosis. Follow-up is warranted at the very least. 2. Findings consistent with reflux nephropathy. Urothelial thickening could also relate to chronic reflux. Correlate with urinalysis to exclude infection. The report will be called/faxed according to standard departmental protocol. Electronically signed by: Raciel Mary M.D. 09/22/2017 12:40 PM Dictated Date/Time: 09/22/2017 12:27 PM
== END | disposition home or self-care (01) ==
LOC: C.CTS 11:35
PROVIDERS: ATTEND Internal Medicine Endocrinology, Diabetes & Metabolism
DX: E27.9 Disorder of adrenal gland, unspecified (principal); R39.9 Unspecified symptoms and signs involving the genitourinary system